=== PATIENT | female | born 1945 | race Caucasian/White ===

== ENCOUNTER 2018-01-14 15:42 | Inpatient (IN) | payer OTHER, MEDICAID ==
[~2018-01-14] VITALS: Ht 167.6 cm; Wt 80.3 kg
[2018-01-14 15:56] VITALS: BP 140/70
[2018-01-14] MEDS ORDERED: LACTULOSE 20 GM/30 ML UDC PO ONE (16:10)
[2018-01-14] MEDS ORDERED: METOCLOPRAMIDE 10 MG TAB PO ONE (16:10)
[2018-01-14] MEDS ORDERED: NACL 0.9% 1,000 ML IV ONE (16:10)
--- NOTE | 2018-01-14 16:26 | NUR ---
PT TAKEN TO CT IN [place]
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
--- NOTE | 2018-01-14 16:52 | NUR ---
PT NOT ABLE TO GIVE URINE AT THIS TIME
[2018-01-14 16:56] LABS: BASOPHILS # (AUTO) 0.1 K/uL (0.00-0.22); EOSINOPHILS # (AUTO) 0.2 K/uL (0-0.4); EOSINOPHILS % (AUTO) 3.6 % (0.0-4.0); HEMATOCRIT 37.6 % (36-48); HEMOGLOBIN 12.6 g/dL (12.0-16.0); LYMPHOCYTES # (AUTO) 2.4 K/uL (2.5-16.5); LYMPHOCYTES % (AUTO) 37.7 % (20.5-51.1); MEAN CORPUSCULAR HEMOGLOBIN 31 pg (27-31); MEAN CORPUSCULAR HGB CONC 34 g/dL (33-37); MEAN CORPUSCULAR VOLUME 91.7 fL (80-94); MONOCYTES # (AUTO) 0.6 K/uL (0.8-1.0); MONOCYTES % (AUTO) 10.3 % (1.7-9.3); NEUTROPHILS % (AUTO) 47.4 % (42.2-75.2); PLATELET COUNT (AUTO) 197 K/uL (140-450); RED CELL DISTRIBUTION WIDTH 13.5 % (11.6-13.7); WHITE BLOOD COUNT (AUTO) 6.3 K/uL (4.8-10.8)
[2018-01-14 17:19] LABS: ALBUMIN 3.6 g/dL (3.4-5.0); AMYLASE 71 U/L (25-115); ANION GAP 10.1 (8-16); ASPARTATE AMINOTRANSFERASE 22 U/L (15-37); CARBON DIOXIDE 28.8 mmol/L (21-32); CHLORIDE 107 mmol/L (98-107); CREATININE 0.8 mg/dL (0.6-1.3); GLUCOSE 96 mg/dL (74-106); LIPASE 106 U/L (73-393); POTASSIUM 3.9 mmol/L (3.5-5.1); SODIUM SERUM 142 mmol/L (136-145); TOTAL BILIRUBIN 0.3 mg/dL (0.0-1.0); UREA NITROGEN, BLOOD 10 mg/dL (7-18)
[2018-01-14 18:08] LABS: APPEARANCE,URINE CLEAR (CLEAR); BILIRUBIN,URINE NEGATIVE (NEGATIVE); BLOOD, URINE NEGATIVE (NEGATIVE); COLOR,URINE YELLOW (YELLOW); LEUKOCYTE ESTERASE ,URINE NEGATIVE (NEGATIVE); NITRITE, URINE NEGATIVE (NEGATIVE); PH,URINE 6.5 (5.0-9.0); UGLUCOSE NEGATIVE (NEGATIVE)
--- NOTE | 2018-01-14 19:10 | NUR ---
PT REPORTS THAT SHE HAS BEEN NPO SINCE 2PM (1400) THIS AFTERNOON. ER NOTIFIED.
[2018-01-14] MEDS ORDERED: PIPERACILLIN/TAZOBACTAM 3.375 GM in DEXTROSE 5% 50 ML IV ONE (19:15)
--- NOTE | 2018-01-14 19:15 | NUR ---
PT LAYING IN BED, DAUGHTER AT BEDSIDE, AWAITNG ROOM PLACEMENT.
--- NOTE | 2018-01-14 19:20 | NUR ---
Patient will be admitted to care of DR. REYES. Admited to MED SURG. Will go to [id number]. Belongings list completed. Report to SHANNAN HERCULES.
[2018-01-14 19:35] VITALS: BP 156/79
--- NOTE | 2018-01-14 19:35 | NUR ---
PT ARRIVED VIA GURNEY FROM ER. RECEIVED REPORT FROM ER NURSE RN. PT AMBULATORY, SPEAKS CITIZEN OF [place] AND [place]. AOX4, CALM AND COOPERATIVE. ON ROOM AIR, IV ON LEFT AC #[id number]-[id number] WELL. PT DAUGHTER ORESTES AT BEDSIDE. DISCUSSED PLAN OF CARE AND PT VERBALIZED UNDERSTANDING. NO S/S OF RESPIRATORY DISTRESS OR DISCOMFORT NOTED AT THIS TIME. VITAL SIGNS TAKEN- BP ELEVATED. MRSA SWAB COLLECTED BY MERCEDES-RN. ORIENTED PT TO BEDROOM, BATHROOM, BED, CALL LIGHT. PT VERBALIZED UNDERSTANDING. BED IN LOWEST POSITION, BED BREAKS ON, AND BOTH SIDE RAILS UP. BED SIDE TABLE AND CALL LIGHT ARE WITHIN REACH. WILL CONTINUE TO MONITOR.
[2018-01-14] MEDS ORDERED: PIPERACILLIN/TAZOBACTAM 3.375 GM VIAL IV ONE (19:48)
--- NOTE | 2018-01-14 20:00 | NUR ---
SCHEDULED MEDICATION ZOSYN ADMINISTERED BY NURSE MERCEDES-SHANNAN. PT TOLERATED WELL.
[2018-01-14] MEDS: DEXT 5% / NACL 0.9% 500 ML IV SCH (22:00)
--- NOTE | 2018-01-14 22:00 | NUR ---
DR. FRYE IN TO SEE PT. DISCUSSED SURGICAL PROCEDURE- PT VERBALIZED UNDERSTANDING. ORDERED TO HAVE CONSENT FORM SIGNED.
--- NOTE | 2018-01-14 22:20 | NUR ---
CONSENT FORM SIGNED FOR SURGICAL PROCEDURE AND POSSIBLE BLOOD TRANSFUSION.
--- NOTE | 2018-01-14 22:35 | NUR ---
OR NURSES ARRIVED TO UNIT AND TOOK PT VIA GURNEY TO OR FOR SURGERY. PT RESTING IN BED, NO S/S OF RESPIRATORY DISTRESS OR DISCOMFORT NOTED AT THIS TIME.
[2018-01-14] MEDS ORDERED: BUPIVACAINE-MPF 0.5% 30 ML VIAL INJ ONE (22:48)
[2018-01-14] MEDS ORDERED: fentaNYL 0.05 MG/ML VIAL ONE (22:50)
[2018-01-14] MEDS ORDERED: LIDOCAINE 2% 100 MG/5 ML SYR IVP ONE (23:32)
[2018-01-14] MEDS ORDERED: PHENYLEPHRINE 10 MG/ML VIAL ONE (23:32)
[2018-01-14] MEDS ORDERED: GLYCOPYRROLATE 0.2 MG/ML VIAL ONE (23:32)
[2018-01-14] MEDS ORDERED: DESFLURANE 240 ML BTL INH ONE (23:32)
[2018-01-14] MEDS ORDERED: ONDANSETRON 4 MG/2 ML VIAL ONE (23:32)
[2018-01-14] MEDS ORDERED: SUCCINYLCHOLINE CHLORIDE 200 MG/10 ML VIAL IVP ONE (23:32)
[2018-01-14] MEDS ORDERED: ROCURONIUM 50 MG/5 ML VIAL IV ONE (23:32)
[2018-01-14] MEDS ORDERED: ePHEDrine 50 MG/ML VIAL ONE (23:32)
[2018-01-14] MEDS ORDERED: DEXAMETHASONE 4 MG/ML VIAL ONE (23:32)
[2018-01-14] MEDS ORDERED: PROPOFOL 200 MG/20 ML VIAL IV ONE (23:32)
[2018-01-15] MEDS ORDERED: ONDANSETRON 4 MG/2 ML VIAL IVP PRN ×2 (00:10→03:15)
[2018-01-15] MEDS ORDERED: HYDROmorphone 1 MG/ML AMP IVP PRN (00:10)
[2018-01-15 01:25] VITALS: BP 167/79
--- NOTE | 2018-01-15 01:25 | NUR ---
PT ARRIVED BACK TO UNIT VIA GURNEY BY OR NURSES. VITAL SIGNS TAKEN AND BP ELEVATION NOTED. OR NURSES ALSO STATED HER BP HAS BEEN ELEVATED. PT C/O PAIN 01/27- WILL MEDICATE. NO S/S OF RESPIRATORY DISTRESS NOTED AT THIS TIME. WILL CONTINUE TO MONITOR.
[2018-01-15] MEDS: HYDROmorphone 1 MG/ML AMP IVP PRN ×2 (01:48→09:22)
--- NOTE | 2018-01-15 01:50 | NUR ---
MEDICATED WITH DILAUDID FOR SEVERE PAIN 01/27. PT ALSO C/O LEG CRAMPING AND ASSISTED PT WITH CHANGING POSITIONS FOR COMFORT. PT TOLERATED PAIN MEDICATION WELL. NO S/S OF RESPIRATORY DISTRESS NOTED. WILL CONTINUE TO MONITOR.
[2018-01-15] MEDS: HYDROcodone/APAP 5/325 MG 1 TAB TAB PO PRN ×2 (03:00→16:20)
--- NOTE | 2018-01-15 03:00 | NUR ---
PT CONTINUES TO C/O PAIN 12/27- MEDICATED WITH NORCO. PT TOLERATED WELL. ASSISTED PT TO USE BEDSIDE COMMODE SINCE PT DID NOT FEEL STRONG ENOUGH TO WALK TO THE BATHROOM. PT BACK IN BED RESTING. NO S/S OF RESPIRATORY DISTRESS. WILL CONTINUE TO MONITOR.
--- NOTE | 2018-01-15 03:16 | NUR ---
PT C/O NAUSEA. CALLED DR. REYES HOWEVER DR. FERNANDEZ, DAVID IS ON-CALL. ORDERED ZOFRAN 4MG IVP Q6H PRN.
[2018-01-15] MEDS: DEXT 5% / NACL 0.9% 500 ML IV SCH (04:40)
--- NOTE | 2018-01-15 05:20 | NUR ---
PT RESTING IN BED. NO S/S OF RESPIRATORY DISTRESS OR DISCOMFORT NOTED AT THIS TIME. WILL CONTINUE TO MONITOR.
[2018-01-15] MEDS ORDERED: PIPERACILLIN/TAZOBACTAM 3.375 GM VIAL IV ONE (05:39)
[2018-01-15] MEDS: PIPER/TAZO 3.375GM/D5W PREMIX 50 ML IV SCH ×2 (05:43→12:07)
--- NOTE | 2018-01-15 06:00 | NUR ---
PT RESTING IN BED AT THIS TIME. NO S/S OF RESPIRATORY DISTRESS OR DISCOMFORT NOTED AT THIS TIME. WILL CONTINUE TO MONITOR.
[2018-01-15 06:56] LABS: BASOPHILS % (AUTO) 0.1 % (0.0-2.0); HEMATOCRIT 37.2 % (36-48); HEMOGLOBIN 12.7 g/dL (12.0-16.0); LYMPHOCYTES # (AUTO) 0.7 K/uL (2.5-16.5); LYMPHOCYTES % (AUTO) 7.2 % (20.5-51.1); MEAN CORPUSCULAR HEMOGLOBIN 32 pg (27-31); MEAN CORPUSCULAR HGB CONC 34 g/dL (33-37); MEAN CORPUSCULAR VOLUME 91.9 fL (80-94); MONOCYTES # (AUTO) 0.1 K/uL (0.8-1.0); MONOCYTES % (AUTO) 1.4 % (1.7-9.3); NEUTROPHILS # (AUTO) 8.6 K/uL (1.8-7.7); NEUTROPHILS % (AUTO) 91.3 % (42.2-75.2); PLATELET COUNT (AUTO) 194 K/uL (140-450); RED BLOOD CELL COUNT(AUTO) 4.05 MIL/uL (4.20-5.40); RED CELL DISTRIBUTION WIDTH 13.3 % (11.6-13.7); WHITE BLOOD COUNT (AUTO) 9.4 K/uL (4.8-10.8)
[2018-01-15 07:16] LABS: ALBUMIN 3.5 g/dL (3.4-5.0); ANION GAP 9.8 (8-16); ASPARTATE AMINOTRANSFERASE 23 U/L (15-37); CARBON DIOXIDE 27.1 mmol/L (21-32); CHLORIDE 106 mmol/L (98-107); CREATININE 0.6 mg/dL (0.6-1.3); GLUCOSE 153 mg/dL (74-106); MAGNESIUM 1.7 mg/dL (1.8-2.4); PHOSPHORUS 2.9 mg/dL (2.5-4.9); POTASSIUM 3.9 mmol/L (3.5-5.1); SODIUM SERUM 139 mmol/L (136-145); TOTAL BILIRUBIN 0.4 mg/dL (0.0-1.0); UREA NITROGEN, BLOOD 8 mg/dL (7-18)
[2018-01-15] MEDS ORDERED: DEXT 5% /NACL 0.9% 1,000 ML IV SCH (07:20)
--- NOTE | 2018-01-15 07:36 | NUR ---
ENDORSED PT CARE TO DAY SHIFT NURSE SHAMA FOR CONTINUITY OF CARE.
--- NOTE | 2018-01-15 07:37 | NUR ---
RECEIVED REPORT FROM METAL SOLDERER NURSE. PATIENT SITTING IN BED COMFORTABLY. NO DISTRESS NOTED. PAIN WITHIN TOLERABLE AT THIS TIME. RESPIRATIONS EVEN, UNLABORED, ON ROOM AIR. AAOX4, CALM, COOPERATIVE, SKIN COLOR APPROPRIATE TO ETHNICITY, WARM TO TOUCH. HAS 3 ABDOMINAL INCISIONS WITH DERMABOND S/P LAP APPENDECTOMY EARLIER THIS MORNING. IV SITE INTACT, PATENT, AND INFUSING IVF PER MD ORDERS. HAS NOT HAD A BM, NOR AMBULATED YET. REVIEWED PLAN OF CARE WITH PATIENT. PATIENT VERBALIZED UNDERSTANDING. SAFETY MEASURES IN PLACE, WILL CONTINUE TO MONITOR.
[2018-01-15 08:00] VITALS: BP 148/74
--- NOTE | 2018-01-15 08:27 | NUR ---
CLARIFIED WITH THE PATIENT REGARDING ADVANCE DIRECTIVES PATIENT STATED HAS NO ADVANCE DIRECTIVES. PATIENT IS A/0X4 DAUGHTER AT THE BED SIDE PROVIDE ALL THE INFORMATION PATIENT AND DAUGHTER STATED NO FOR ADVANCE DIRECTIVES.
--- NOTE | 2018-01-15 09:46 | NUR ---
PATIENT HAS BEEN SCREENED AND CATEGORIZED LOW NUTRITION RISK. PATIENT WILL BE SEEN WITHIN 7 DAYS OF ADMISSION. 01/21/[address]
--- NOTE | 2018-01-15 10:30 | NUR ---
PATIENT LYING DOWN IN BED SLEEPING, AROUSABLE BY VOICE. NO DISTRESS NOTED. PAIN WITHIN TOLERABLE. CONDITION UNCHANGED. WILL CONTINUE TO MONITOR.
[2018-01-15] MEDS ORDERED: MIRABULK PO (11:30)
--- NOTE | 2018-01-15 12:08 | NUR ---
PATIENT SITTING IN BED WITH LUNCH TRAY. NO DISTRESS NOTED. DENIES ANY PAIN AT THIS TIME. SCHEDULED ANTIBIOTIC GIVEN. WILL CONTINUE TO MONITOR.
--- NOTE | 2018-01-15 14:12 | NUR ---
CM NOTE INITIAL REVIEW FAXED TO [facility] [phone] JIMMY GONZALEZ # [phone]
--- NOTE | 2018-01-15 14:15 | NUR ---
PATIENT SITTING IN BED TALKING WITH FAMILY MEMBERS AT BEDSIDE. NO DISTRESS NOTED. PAIN WITHIN TOLERABLE WILL CONTINUE TO MONITOR.
[2018-01-15 16:00] VITALS: BP 154/75
--- NOTE | 2018-01-15 16:21 | NUR ---
PATIENT COMPLAINS OF PAIN, NORCO GIVEN PER MD ORDERS. SAFETY MEASURES IN PLACE, CALL LIGHT WITHIN REACH.
--- NOTE | 2018-01-15 16:40 | NUR ---
AWAKE AND ALERT RESPONSIVE PATIENT BEING DISCHARGED REFUSED INCENTIVE SPIROMETRY THERAPY
--- NOTE | 2018-01-15 18:45 | NUR ---
DISCHARGE INSTRUCTIONS AND DISCHARGE PRESCRIPTIONS GIVEN. PATIENT VERBALIZED UNDERSTANDING. IV LINE DISCONTINUED. PATIENT LEFT WITH ALL HER BELONGINGS AND DISCHARGE PAPERS. PATIENT LEFT IN STABLE CONDITION .
== END 2018-01-15 18:45 | disposition home or self-care (01) | DRG 343 ==
LOC: MED 15:42 → MTU 19:09
PROVIDERS: ADMIT Internal Medicine; ATTEND Internal Medicine
PROC: 0DTJ4ZZ Resection of Appendix, Percutaneous Endoscopic Approach (ICD-10-PCS; principal; 2018-01-15)
DX: K35.80 Unspecified acute appendicitis (principal); K59.09 Other constipation; I10 Essential (primary) hypertension; R42 Dizziness and giddiness
CPT/HCPCS: 36415; 71045; 80053; 81003; 82150; 82374; 83690; 83735; 84100; 85025; 86886; 86900; 86901; 87081; 93005; 99285; C1758; J0330; J1100; J1170; J2001; J2370; J2405; J2543; J2704; J3010; J3490; J7030; J7042; J7060; J8597; Q0092

== ENCOUNTER 2018-03-23 10:52 | Emergency (ER) | payer OTHER, MEDICAID ==
[~2018-03-23] VITALS: Ht 165.1 cm; Wt 76.2 kg
[~2018-03-23 10:52] MED LIST: MIRABULK PO
[2018-03-23 10:55] VITALS: BP 132/73
[2018-03-23] MEDS ORDERED: MORPHINE SULFATE 4 MG/ML SYR ONE (11:38)
[2018-03-23] MEDS: DIPHENOXYLATE /ATROPINE 2.5 MG TAB PO ONE (11:41)
[2018-03-23] MEDS: NACL 0.9% 1,000 ML IV SCH (11:44)
[2018-03-23] MEDS: MORPHINE SULFATE 2 MG/ML SYR IVP ONE (11:45)
[2018-03-23] MEDS: KETOROLAC 30 MG/ML VIAL IVP ONE (11:47)
[2018-03-23 11:52] LABS: BASOPHILS % (AUTO) 0.5 % (0.0-2.0); EOSINOPHILS # (AUTO) 0.1 K/uL (0-0.4); EOSINOPHILS % (AUTO) 1.2 % (0.0-4.0); HEMATOCRIT 40.8 % (36-48); HEMOGLOBIN 13.4 g/dL (12.0-16.0); LYMPHOCYTES # (AUTO) 1.4 K/uL (2.5-16.5); LYMPHOCYTES % (AUTO) 25.8 % (20.5-51.1); MEAN CORPUSCULAR HEMOGLOBIN 31 pg (27-31); MEAN CORPUSCULAR HGB CONC 33 g/dL (33-37); MONOCYTES # (AUTO) 0.5 K/uL (0.8-1.0); MONOCYTES % (AUTO) 8.7 % (1.7-9.3); NEUTROPHILS # (AUTO) 3.6 K/uL (1.8-7.7); NEUTROPHILS % (AUTO) 63.8 % (42.2-75.2); PLATELET COUNT (AUTO) 198 K/uL (140-450); RED BLOOD CELL COUNT(AUTO) 4.39 MIL/uL (4.20-5.40); RED CELL DISTRIBUTION WIDTH 13.6 % (11.6-13.7); WHITE BLOOD COUNT (AUTO) 5.6 K/uL (4.8-10.8)
[2018-03-23] MEDS: LEVOFLOXACIN 500 MG/D5W PREMIX 100 ML IV ONE (11:52)
[2018-03-23 12:05] LABS: ALBUMIN 3.7 g/dL (3.4-5.0); AMYLASE 51 U/L (25-115); ANION GAP 9.8 (8-16); ASPARTATE AMINOTRANSFERASE 23 U/L (15-37); CARBON DIOXIDE 30.7 mmol/L (21-32); CHLORIDE 105 mmol/L (98-107); CREATININE 0.8 mg/dL (0.6-1.3); GLUCOSE 89 mg/dL (74-106); LIPASE 73 U/L (73-393); POTASSIUM 3.5 mmol/L (3.5-5.1); SODIUM SERUM 142 mmol/L (136-145); UREA NITROGEN, BLOOD 11 mg/dL (7-18)
[2018-03-23 12:35] LABS: APPEARANCE,URINE HAZY (CLEAR); COLOR,URINE YELLOW (YELLOW)
[2018-03-23 12:38] LABS: BILIRUBIN,URINE NEGATIVE (NEGATIVE); BLOOD, URINE NEGATIVE (NEGATIVE); UGLUCOSE NEGATIVE (NEGATIVE)
[2018-03-23 12:39] LABS: LEUKOCYTE ESTERASE ,URINE TRACE (NEGATIVE); NITRITE, URINE NEGATIVE (NEGATIVE)
[2018-03-23] MEDS: metroNIDAZOLE 500 MG/NS PREMIX 100 ML IV ONE (12:53)
[2018-03-23] MEDS: NACL 0.9% 1,000 ML IV ONE (13:03)
[2018-03-23 14:05] VITALS: BP 128/76
== END 2018-03-23 14:05 | disposition home or self-care (01) ==
LOC: MED 10:52
DX: K52.9 Noninfective gastroenteritis and colitis, unspecified (principal); Z90.89 Acquired absence of other organs; Z79.899 Other long term (current) drug therapy
CPT/HCPCS: 36415; 74176; 80053; 82150; 83690; 84703; 85025; 96361; 96365; 96367; 96375; 99285; J1885; J1956; J2270; J3490; J7030

== ENCOUNTER 2018-05-29 07:21 | Emergency (ER) | payer OTHER, MEDICAID ==
[~2018-05-29] VITALS: Ht 167.6 cm; Wt 80.3 kg
[2018-05-29 07:26] VITALS: BP 143/90
--- NOTE | 2018-05-29 07:35 | NUR ---
PT AMBULATES TO BED 4
--- NOTE | 2018-05-29 07:36 | NUR ---
PT. ARRIVED TO THE ED W/ C/O DIARRHEA SINCE LAST NIGHT. PT STATES SHE COULDN'T SLEEP AT ALL LAST NIGHT AND HAD A COLONOSCOPY ON SATURDAY. DENIES ANY ABD PAIN. DENIES ANY N/V/. DENIES ANY BLOOD IN FECES. DENIES ANY DIZZYNESS. ABD ROUND AND SOFT AND NON TENDER. ACTIVE X 4 QUADS. PT STATES " I JUST FEEL WEAK". ER MD MADE AWARE. SAFETY PRECAUTIONS IN PLACE. RR EVEN AND UNLABORED. VSS. WILL CONTINUE TO MONITOR.
--- NOTE | 2018-05-29 07:37 | NUR ---
Patient being evaluated by physician at bedside.
[2018-05-29] MEDS ORDERED: NACL 0.9% 1,000 ML IV ONE (07:40)
[2018-05-29 08:03] LABS: BASOPHILS # (AUTO) 0.1 K/uL (0.00-0.22); BASOPHILS % (AUTO) 1.1 % (0.0-2.0); EOSINOPHILS # (AUTO) 0.1 K/uL (0-0.4); EOSINOPHILS % (AUTO) 1.9 % (0.0-4.0); HEMATOCRIT 40.1 % (36-48); HEMOGLOBIN 13.2 g/dL (12.0-16.0); LYMPHOCYTES # (AUTO) 1.8 K/uL (2.5-16.5); MEAN CORPUSCULAR HEMOGLOBIN 31 pg (27-31); MEAN CORPUSCULAR HGB CONC 33 g/dL (33-37); MEAN CORPUSCULAR VOLUME 92.9 fL (80-94); MONOCYTES # (AUTO) 0.6 K/uL (0.8-1.0); MONOCYTES % (AUTO) 8.9 % (1.7-9.3); NEUTROPHILS # (AUTO) 3.8 K/uL (1.8-7.7); NEUTROPHILS % (AUTO) 60.1 % (42.2-75.2); PLATELET COUNT (AUTO) 184 K/uL (140-450); RED BLOOD CELL COUNT(AUTO) 4.32 MIL/uL (4.20-5.40); RED CELL DISTRIBUTION WIDTH 13.2 % (11.6-13.7); WHITE BLOOD COUNT (AUTO) 6.3 K/uL (4.8-10.8)
--- NOTE | 2018-05-29 08:30 | NUR ---
PT. SLEEPING IN BED, SIDE RAILS X 1 UP, RR EVEN AND UNLABORED. HOB ELEVATED. WILL CONTINUE TO MONITOR.
[2018-05-29 08:48] LABS: ANION GAP 11.1 (8-16); ASPARTATE AMINOTRANSFERASE 22 U/L (15-37); CARBON DIOXIDE 28.2 mmol/L (21-32); CHLORIDE 106 mmol/L (98-107); CREATININE 0.8 mg/dL (0.6-1.3); GLUCOSE 96 mg/dL (74-106); POTASSIUM 3.3 mmol/L (3.5-5.1); SODIUM SERUM 142 mmol/L (136-145); TOTAL BILIRUBIN 0.5 mg/dL (0.0-1.0); UREA NITROGEN, BLOOD 12 mg/dL (7-18)
[2018-05-29 08:49] LABS: ALBUMIN 3.8 g/dL (3.4-5.0)
[2018-05-29 09:19] VITALS: BP 141/60
--- NOTE | 2018-05-29 09:19 | NUR ---
Patient discharged with v/s stable. Written and verbal after care instructions given and explained. Patient alert, oriented and verbalized understanding of instructions. Ambulatory with steady gait. All questions addressed prior to discharge. ID band removed. Patient advised to follow up with PMD. Rx of IMMODIUM A-D 2MG given. Patient educated on indication of medication including possible reaction and side effects. Opportunity to ask questions provided and answered.
== END 2018-05-29 09:19 | disposition home or self-care (01) ==
LOC: MED 07:21
DX: R19.7 Diarrhea, unspecified (principal); E87.6 Hypokalemia; Z79.899 Other long term (current) drug therapy
CPT/HCPCS: 36415; 80053; 85025; 96360; 99283; J7030

== ENCOUNTER 2018-07-03 07:41 | Emergency (ER) | payer OTHER, MEDICAID ==
[~2018-07-03] VITALS: Ht 167.6 cm; Wt 77.1 kg
[2018-07-03 07:45] VITALS: BP 144/71
--- NOTE | 2018-07-03 07:51 | NUR ---
PATIENT AMBULATED TO BED 2.
--- NOTE | 2018-07-03 07:56 | NUR ---
BIB SELF WITH C/O SOB, SAT 100% AT THIS TIME, PT STATES SHE FEELS LIKE SHE NEEDS MORE AIR. DENIES N/V/D; SKIN IS PINK/WARM/DRY; AAOX4 WITH EVEN AND STEADY GAIT; LUNGS CLEAR BL; HR EVEN AND REGULAR; PT DENIES ANY FEVER, CP, OR COUGH AT THIS TIME; PATIENT STATES PAIN OF 0/10 AT THIS TIME; VSS; PATIENT POSITIONED FOR COMFORT; HOB ELEVATED; BEDRAILS UP X2; BED DOWN. ER MD MADE AWARE OF PT STATUS.
--- NOTE | 2018-07-03 08:08 | NUR ---
PATIENT HOOKED UP TO BEDSIDE SPO2 MONITOR AND HEART MONITOR. NSR ON MONITOR AT THIS TIME.
--- NOTE | 2018-07-03 08:14 | NUR ---
EKG PERFORMED AT BEDSIDE
[2018-07-03 08:26] LABS: BASOPHILS % (AUTO) 0.4 % (0.0-2.0); EOSINOPHILS # (AUTO) 0.1 K/uL (0-0.4); HEMATOCRIT 40.6 % (36-48); HEMOGLOBIN 13.2 g/dL (12.0-16.0); LYMPHOCYTES # (AUTO) 1.6 K/uL (2.5-16.5); MEAN CORPUSCULAR HEMOGLOBIN 30 pg (27-31); MEAN CORPUSCULAR HGB CONC 33 g/dL (33-37); MEAN CORPUSCULAR VOLUME 93.2 fL (80-94); MONOCYTES # (AUTO) 0.5 K/uL (0.8-1.0); MONOCYTES % (AUTO) 7.3 % (1.7-9.3); NEUTROPHILS # (AUTO) 4.3 K/uL (1.8-7.7); NEUTROPHILS % (AUTO) 66.3 % (42.2-75.2); PLATELET COUNT (AUTO) 203 K/uL (140-450); RED BLOOD CELL COUNT(AUTO) 4.35 MIL/uL (4.20-5.40); RED CELL DISTRIBUTION WIDTH 13.4 % (11.6-13.7); WHITE BLOOD COUNT (AUTO) 6.5 K/uL (4.8-10.8)
[2018-07-03 08:46] LABS: ALBUMIN 3.7 g/dL (3.4-5.0); ANION GAP 12.1 (8-16); ASPARTATE AMINOTRANSFERASE 23 U/L (15-37); CARBON DIOXIDE 28.7 mmol/L (21-32); CHLORIDE 104 mmol/L (98-107); CREATININE 0.8 mg/dL (0.6-1.3); GLUCOSE 99 mg/dL (74-106); POTASSIUM 3.8 mmol/L (3.5-5.1); SODIUM SERUM 141 mmol/L (136-145); TOTAL BILIRUBIN 0.7 mg/dL (0.0-1.0); UREA NITROGEN, BLOOD 11 mg/dL (7-18)
[2018-07-03 09:53] VITALS: BP 145/65
--- NOTE | 2018-07-03 09:54 | NUR ---
Patient discharged with v/s stable. Written and verbal after care instructions given and explained. Patient alert, oriented and verbalized understanding of instructions. Ambulatory with steady gait. All questions addressed prior to discharge. ID band removed. Patient advised to follow up with PMD. Rx of gabapentin given. Patient educated on indication of medication including possible reaction and side effects. Opportunity to ask questions provided and answered.
== END 2018-07-03 09:54 | disposition home or self-care (01) ==
LOC: MED 07:41
DX: R06.02 Shortness of breath (principal); Z79.899 Other long term (current) drug therapy
CPT/HCPCS: 36415; 71045; 80053; 85025; 93005; 99284; Q0092

== ENCOUNTER 2018-07-05 07:38 | Emergency (ER) | payer OTHER, MEDICAID ==
[~2018-07-05] VITALS: Ht 157.5 cm; Wt 77.6 kg
[2018-07-05 07:40] VITALS: BP 122/73
--- NOTE | 2018-07-05 07:46 | NUR ---
PT AMBULATES TO BED 4
--- NOTE | 2018-07-05 07:49 | NUR ---
72/F BIB SELF C/O PALPITATIONS SINCE LAST NIGHT AND >10 EPISODES OF LOOSE STOOLS EXPRESSES FEELING ANXIOUS WELL.DENIES N/V ,COUGH OR COLD SYMPTOMS SEEN IN OUR ER JUL 03 PALPITATIONS AND IN MAY FOR SAME DIARRHEA PER PT HX--DENIES RX--IMODIUM ( 3PM) YESTERDAY. SKIN IS PINK/WARM/DRY; AAOX4 WITH EVEN AND STEADY GAIT. PATIENT STATES PAIN OF 0/10 AT THIS TIME PATIENT POSITIONED FOR COMFORT; HOB ELEVATED; BEDRAILS UP X2; BED DOWN. ER MD MADE AWARE OF PT STATUS. Addendum: 07/05/18 at 0840 by MED1 PT REFUSED TO PUT ON GAWN AT THIS TIME.
--- NOTE | 2018-07-05 08:06 | NUR ---
Patient being evaluated by DR REHMAN at bedside.
[2018-07-05] MEDS ORDERED: NACL 0.9% 500 ML IV ONE (08:35)
--- NOTE | 2018-07-05 08:42 | NUR ---
DIARRHEA 1 EPISODE AT THIS TIME.
--- NOTE | 2018-07-05 08:46 | NUR ---
PT TAKEN TO X RAY VIA W/C, ACCOMPANIED BY AIR SHOVEL OPERATOR.
[2018-07-05 09:10] LABS: BASOPHILS # (AUTO) 0.1 K/uL (0.00-0.22); BASOPHILS % (AUTO) 0.7 % (0.0-2.0); EOSINOPHILS # (AUTO) 0.1 K/uL (0-0.4); HEMOGLOBIN 13.4 g/dL (12.0-16.0); LYMPHOCYTES # (AUTO) 2.2 K/uL (2.5-16.5); LYMPHOCYTES % (AUTO) 29.1 % (20.5-51.1); MEAN CORPUSCULAR HEMOGLOBIN 30 pg (27-31); MEAN CORPUSCULAR HGB CONC 33 g/dL (33-37); MEAN CORPUSCULAR VOLUME 92.8 fL (80-94); MONOCYTES # (AUTO) 0.5 K/uL (0.8-1.0); MONOCYTES % (AUTO) 6.9 % (1.7-9.3); NEUTROPHILS # (AUTO) 4.6 K/uL (1.8-7.7); NEUTROPHILS % (AUTO) 62.3 % (42.2-75.2); PLATELET COUNT (AUTO) 201 K/uL (140-450); RED BLOOD CELL COUNT(AUTO) 4.41 MIL/uL (4.20-5.40); RED CELL DISTRIBUTION WIDTH 13.6 % (11.6-13.7); WHITE BLOOD COUNT (AUTO) 7.4 K/uL (4.8-10.8)
[2018-07-05 09:36] LABS: ANION GAP 12.2 (8-16); CARBON DIOXIDE 29.8 mmol/L (21-32); CHLORIDE 104 mmol/L (98-107); GLUCOSE 96 mg/dL (74-106); SODIUM SERUM 142 mmol/L (136-145)
[2018-07-05 09:37] LABS: CREATININE 0.7 mg/dL (0.6-1.3); UREA NITROGEN, BLOOD 12 mg/dL (7-18)
[2018-07-05 09:45] LABS: ALBUMIN 3.9 g/dL (3.4-5.0); ASPARTATE AMINOTRANSFERASE 24 U/L (15-37); TOTAL BILIRUBIN 0.4 mg/dL (0.0-1.0)
[2018-07-05 10:44] VITALS: BP 122/50
--- NOTE | 2018-07-05 10:44 | NUR ---
Patient discharged with v/s stable. Written and verbal after care instructions given and explained. Patient alert, oriented and verbalized understanding of instructions. Ambulatory with steady gait. All questions addressed prior to discharge. ID band removed. Patient advised to follow up with PMD. Rx of LOMOTIL given. Patient educated on indication of medication including possible reaction and side effects. Opportunity to ask questions provided and answered.
== END 2018-07-05 10:44 | disposition home or self-care (01) ==
LOC: MED 07:38
DX: R19.7 Diarrhea, unspecified (principal); Z90.49 Acquired absence of other specified parts of digestive tract; Z79.899 Other long term (current) drug therapy
CPT/HCPCS: 36415; 74022; 80053; 81002; 85025; 96360; 99284; J7030

== ENCOUNTER 2018-07-26 13:37 | Emergency (ER) | payer OTHER, MEDICAID ==
[~2018-07-26] VITALS: Ht 167.6 cm; Wt 77.1 kg
[2018-07-26 13:40] VITALS: BP 126/72
--- NOTE | 2018-07-26 13:41 | NUR ---
PATIENT AMBULATED TO BED 7 AT THIS TIME.
--- NOTE | 2018-07-26 13:57 | NUR ---
PATIENT PRESENTS TO ED WITH THE C/O ANXIETY AND ABDOMINAL PAIN. PT SAYS SHE IS HAVING ANXIETY FOR COUPLE OF MENTHA. NOT TAKING ANY MEDICINE FOR ANXIETY. PT ALSO STATED THAT SHE IS HAVING ABDOMINAL PAIN FOR 5 DAYS. TOOK IBUPROFEN 5 HOURS AGO. LAST BM WAS 5 DAYS AGO. ABDOMEN SOFT ROUND AND NON-TENDER. ACTIVE BOWEL SOUND. DENIES N/V/D. SKIN IS PINK/WARM/DRY. AAOX4 WITH EVEN AND STEADY GAIT. PT DENIES ANY FEVER, CP, SOB, OR COUGH AT THIS TIME; PATIENT STATES PAIN OF 8/10 AT THIS TIME. VSS. PATIENT POSITIONED FOR COMFORT; HOB ELEVATED; BEDRAILS UP X2; BED DOWN. ER MD MADE AWARE OF PT STATUS.
--- NOTE | 2018-07-26 14:02 | NUR ---
SEEN BY DR. YOST.
[2018-07-26] MEDS ORDERED: GABAPENTIN 300 MG CAP PO ONE (14:05)
[2018-07-26 14:25] VITALS: BP 145/79
--- NOTE | 2018-07-26 14:25 | NUR ---
Patient discharged with v/s stable. Written and verbal after care instructions given and explained. Patient alert, oriented and verbalized understanding of instructions. Ambulatory with steady gait. All questions addressed prior to discharge. ID band removed. Patient advised to follow up with PMD. Rx of GABAPENTIN given. Patient educated on indication of medication including possible reaction and side effects. Opportunity to ask questions provided and answered.
== END 2018-07-26 14:25 | disposition home or self-care (01) ==
LOC: MED 13:37
DX: F41.9 Anxiety disorder, unspecified (principal); Z79.899 Other long term (current) drug therapy
CPT/HCPCS: 99283

== ENCOUNTER 2018-08-10 14:50 | Emergency (ER) | payer OTHER, MEDICAID ==
[~2018-08-10] VITALS: Ht 172.7 cm; Wt 79.4 kg
--- NOTE | 2018-08-10 15:02 | NUR ---
PT AMB TO ER BED 9
[2018-08-10 15:05] VITALS: BP 95/49
--- NOTE | 2018-08-10 15:10 | NUR ---
72/F PT C/O 12/27 GENERALIZED ABDOMINAL PAIN AND DIARRHEA SINCE YESTERDAY MORNING. LBM TODAY. DENIES N/V. PLACED IN BED, WAITING FOR ER MD FOR EVALUATION.
--- NOTE | 2018-08-10 15:34 | NUR ---
Patient being evaluated by DR LEWIS at bedside.
[2018-08-10] MEDS ORDERED: NACL 0.9% 1,000 ML IV ONE (15:45)
[2018-08-10] MEDS ORDERED: LEVOFLOXACIN 500 MG/D5W PREMIX 100 ML IV ONE (15:45)
--- NOTE | 2018-08-10 15:52 | NUR ---
PT SENT TO CT WITH TECH VIA BED AAOX4
--- NOTE | 2018-08-10 16:04 | NUR ---
PT BACK FROM XRAY
[2018-08-10 16:47] LABS: APPEARANCE,URINE CLEAR (CLEAR); BILIRUBIN,URINE NEGATIVE (NEGATIVE); BLOOD, URINE NEGATIVE (NEGATIVE); COLOR,URINE YELLOW (YELLOW); LEUKOCYTE ESTERASE ,URINE NEGATIVE (NEGATIVE); NITRITE, URINE NEGATIVE (NEGATIVE); PH,URINE 6.5 (5.0-9.0); UGLUCOSE NEGATIVE (NEGATIVE)
[2018-08-10 16:49] LABS: BASOPHILS # (AUTO) 0.1 K/uL (0.00-0.22); BASOPHILS % (AUTO) 1.7 % (0.0-2.0); EOSINOPHILS # (AUTO) 0.2 K/uL (0-0.4); EOSINOPHILS % (AUTO) 2.4 % (0.0-4.0); HEMATOCRIT 39.6 % (36-48); HEMOGLOBIN 13.1 g/dL (12.0-16.0); LYMPHOCYTES # (AUTO) 1.6 K/uL (2.5-16.5); LYMPHOCYTES % (AUTO) 22.7 % (20.5-51.1); MEAN CORPUSCULAR HEMOGLOBIN 31 pg (27-31); MEAN CORPUSCULAR HGB CONC 33 g/dL (33-37); MONOCYTES # (AUTO) 0.6 K/uL (0.8-1.0); MONOCYTES % (AUTO) 8.7 % (1.7-9.3); NEUTROPHILS # (AUTO) 4.4 K/uL (1.8-7.7); NEUTROPHILS % (AUTO) 64.5 % (42.2-75.2); PLATELET COUNT (AUTO) 186 K/uL (140-450); RED BLOOD CELL COUNT(AUTO) 4.21 MIL/uL (4.20-5.40); RED CELL DISTRIBUTION WIDTH 13.7 % (11.6-13.7); WHITE BLOOD COUNT (AUTO) 6.9 K/uL (4.8-10.8)
[2018-08-10 17:01] LABS: ALBUMIN 3.4 g/dL (3.4-5.0); ANION GAP 13.4 (8-16); ASPARTATE AMINOTRANSFERASE 21 U/L (15-37); CARBON DIOXIDE 27.4 mmol/L (21-32); CHLORIDE 106 mmol/L (98-107); CREATININE 0.9 mg/dL (0.6-1.3); GLUCOSE 77 mg/dL (74-106); POTASSIUM 3.8 mmol/L (3.5-5.1); SODIUM SERUM 143 mmol/L (136-145); TOTAL BILIRUBIN 0.4 mg/dL (0.0-1.0); UREA NITROGEN, BLOOD 15 mg/dL (7-18)
[2018-08-10 18:28] VITALS: BP 119/61
== END 2018-08-10 18:28 | disposition home or self-care (01) ==
LOC: MED 14:50
DX: K52.9 Noninfective gastroenteritis and colitis, unspecified (principal); K59.00 Constipation, unspecified; Z90.89 Acquired absence of other organs; Z79.899 Other long term (current) drug therapy
CPT/HCPCS: 36415; 74176; 80053; 81003; 85025; 96365; 99284; J1956; J7030

== ENCOUNTER 2018-09-03 15:38 | Emergency (ER) | payer OTHER, MEDICAID ==
[~2018-09-03] VITALS: Ht 170.2 cm; Wt 78.1 kg
[2018-09-03 15:50] VITALS: BP 155/78
--- NOTE | 2018-09-03 15:56 | NUR ---
PT AMBULATED TO LOBBY AT THIS TIME. VSS
--- NOTE | 2018-09-03 16:06 | NUR ---
PT TAKEN TO RADIAOLOGY AT THIS TIME
--- NOTE | 2018-09-03 16:24 | NUR ---
PT GETTING LABS DRAWN AT CHAIR C AT THIS TIME
[2018-09-03 16:35] LABS: BASOPHILS % (AUTO) 0.7 % (0.0-2.0); EOSINOPHILS # (AUTO) 0.2 K/uL (0-0.4); EOSINOPHILS % (AUTO) 2.9 % (0.0-4.0); HEMATOCRIT 40.4 % (36-48); HEMOGLOBIN 13.4 g/dL (12.0-16.0); LYMPHOCYTES # (AUTO) 1.6 K/uL (2.5-16.5); LYMPHOCYTES % (AUTO) 30.9 % (20.5-51.1); MEAN CORPUSCULAR HEMOGLOBIN 31 pg (27-31); MEAN CORPUSCULAR HGB CONC 33 g/dL (33-37); MEAN CORPUSCULAR VOLUME 92.2 fL (80-94); MONOCYTES # (AUTO) 0.5 K/uL (0.8-1.0); MONOCYTES % (AUTO) 9.3 % (1.7-9.3); NEUTROPHILS % (AUTO) 56.2 % (42.2-75.2); PLATELET COUNT (AUTO) 218 K/uL (140-450); RED BLOOD CELL COUNT(AUTO) 4.38 MIL/uL (4.20-5.40); RED CELL DISTRIBUTION WIDTH 13.6 % (11.6-13.7); WHITE BLOOD COUNT (AUTO) 5.3 K/uL (4.8-10.8)
--- NOTE | 2018-09-03 16:49 | NUR ---
72 Y FEMALE C/O ABD PAIN ACROSS ENTIRE ABD X2 DAYS. INTERMITENT CRAMPING PAIN AT 9/10. PT REPORTS LAST BM WAS 1 WEEK AGO. PT TOOK LAXATIVE LAST NIGHT WITH NO RELIEF. BOWEL SOUNDS HYPOACTIVE IN ALL 4 QUADRANTS. ABDOMEN SOFT AND ROUND. DENIES N/V. VSS AT THIS TIME. AA0X4. BED IS DOWN, LOCKED, BED RAIL X 1, ERMD NOTIFIED. MEDHX:ANXIETY RX:GABAPENTIN
--- NOTE | 2018-09-03 16:57 | NUR ---
PT SITTING COMFORTABLY IN BED
[2018-09-03 17:01] LABS: APPEARANCE,URINE CLEAR (CLEAR); BILIRUBIN,URINE NEGATIVE (NEGATIVE); BLOOD, URINE NEGATIVE (NEGATIVE); COLOR,URINE YELLOW (YELLOW); LEUKOCYTE ESTERASE ,URINE NEGATIVE (NEGATIVE); NITRITE, URINE NEGATIVE (NEGATIVE); PH,URINE 7.5 (5.0-9.0); UGLUCOSE NEGATIVE (NEGATIVE)
[2018-09-03 17:06] LABS: ALBUMIN 3.7 g/dL (3.4-5.0); ANION GAP 10.4 (8-16); ASPARTATE AMINOTRANSFERASE 28 U/L (15-37); CARBON DIOXIDE 28.1 mmol/L (21-32); CHLORIDE 104 mmol/L (98-107); CREATININE 0.8 mg/dL (0.6-1.3); GLUCOSE 89 mg/dL (74-106); LIPASE 78 U/L (73-393); POTASSIUM 4.5 mmol/L (3.5-5.1); SODIUM SERUM 138 mmol/L (136-145); TOTAL BILIRUBIN 0.5 mg/dL (0.0-1.0); UREA NITROGEN, BLOOD 10 mg/dL (7-18)
--- NOTE | 2018-09-03 17:06 | NUR ---
DR MARTINEZ AT BEDSIDE
[2018-09-03 17:22] VITALS: BP 151/76
--- NOTE | 2018-09-03 17:22 | NUR ---
Patient discharged with v/s stable. Written and verbal after care instructions given and explained. Patient alert, oriented and verbalized understanding of instructions. Ambulatory with steady gait. All questions addressed prior to discharge. ID band removed. Patient advised to follow up with PMD. Rx of MIRALAX, MOTRIN given. Patient educated on indication of medication including possible reaction and side effects. Opportunity to ask questions provided and answered.
== END 2018-09-03 17:22 | disposition home or self-care (01) ==
LOC: MED 15:38
DX: K59.00 Constipation, unspecified (principal); Z79.899 Other long term (current) drug therapy; Z90.89 Acquired absence of other organs
CPT/HCPCS: 36415; 80053; 81003; 83690; 85025; 99284

== ENCOUNTER 2018-11-10 12:22 | Emergency (ER) | payer OTHER, MEDICAID ==
[~2018-11-10] VITALS: Ht 170.2 cm; Wt 83.5 kg
[2018-11-10 12:42] VITALS: BP 129/55
--- NOTE | 2018-11-10 12:50 | NUR ---
73 Y FEMALE BIB SELF C/O RLQ AND LLQ ABD PAIN X1 DAY. PT REPORTS SHARP 10/10 PAIN WHEN SHE STANDS UP OR WALKS AROUND, PT REPORTS NO PAIN WHEN SHE SITS DOWN. PT TX WTIH 800MG IBUPROFEN AT 07:00 AND 11:00 THIS MORNING. STATES SOME RELIEF. LAST BM YESTERDAY, NORMAL. BOWEL SOUNDS ACTIVE IN ALL 4 QUADRANTS. ABDOMEN SOFT AND ROUND, TENDER TO TOUCH. DENIES N/V. VSS AT THIS TIME. PT AA0X4. BED IS DOWN, LOCKED, BED RAIL X 1, ERMD TO SEE PT. MDHX:ANXIETY RX:GABAPTENTIN
--- NOTE | 2018-11-10 13:55 | NUR ---
PT GOING TO CT VIA WHEELCHAIR
[2018-11-10] MEDS: KETOROLAC 30 MG/ML VIAL IM ONE ×2 (14:04→14:07)
--- NOTE | 2018-11-10 14:04 | NUR ---
PT RETURNED FROM CT
--- NOTE | 2018-11-10 14:10 | NUR ---
PT REFUSING TORADOL, STATES IT IS TOO STRONG. PREFERS MOTRIN. DR FINLEY NOTIFIED.
[2018-11-10] MEDS ORDERED: IBUPROFEN 600 MG TAB PO ONE (14:25)
--- NOTE | 2018-11-10 14:54 | NUR ---
DR FINLEY RE-EVALUATING PT
--- NOTE | 2018-11-10 14:58 | NUR ---
PT AMB TO RESTROOM WITH STEADY GAIT
[2018-11-10 15:00] VITALS: BP 163/82
--- NOTE | 2018-11-10 15:00 | NUR ---
Patient discharged with v/s stable. Written and verbal after care instructions given and explained. Patient alert, oriented and verbalized understanding of instructions. Carried with steady gait. All questions addressed prior to discharge. ID band removed. Patient advised to follow up with PMD. Rx of COLACE, ACETOMINOPHEN given. Patient educated on indication of medication including possible reaction and side effects. Opportunity to ask questions provided and answered. PT PROVIDED COPY OF CT RESULTS.
== END 2018-11-10 15:00 | disposition home or self-care (01) ==
LOC: MED 12:22
DX: R10.32 Left lower quadrant pain (principal); R10.31 Right lower quadrant pain; F41.9 Anxiety disorder, unspecified; Z90.49 Acquired absence of other specified parts of digestive tract; Z79.899 Other long term (current) drug therapy
CPT/HCPCS: 81002; 99284; J1885

== ENCOUNTER 2018-12-19 13:13 | Emergency (ER) | payer OTHER, MEDICAID ==
[~2018-12-19] VITALS: Ht 170.2 cm; Wt 83.0 kg
[2018-12-19 13:19] VITALS: BP 115/74
--- NOTE | 2018-12-19 13:40 | NUR ---
73/F presents to ED with complaints of lower abdominal pain for the past 6 months. States she has been seen here a few times and they tell her nothing is wrong. Pt states she continues to have pain, 1010 worsening today. LBM two days ago. Abdomen soft, non tender with palpation, active bowel sounds x 4 quadrants. Patient denies s/sx of UTI. Denies N/V/D. Denies fever or chills. Pt states she has followed up GI and states "they tell me nothing." AOX4, clear speech, observed drinking water. NAD at this time.
--- NOTE | 2018-12-19 14:12 | NUR ---
US AT BEDSIDE. GAVE WATER, INFORMED HER NEED URINE FOR UA. PT TO TRY AGAIN IN A WHILE.
[2018-12-19 14:19] LABS: BASOPHILS % (AUTO) 0.7 % (0.0-2.0); EOSINOPHILS # (AUTO) 0.2 K/uL (0-0.4); EOSINOPHILS % (AUTO) 2.6 % (0.0-4.0); HEMATOCRIT 35.8 % (36-48); HEMOGLOBIN 11.9 g/dL (12.0-16.0); LYMPHOCYTES % (AUTO) 32.6 % (20.5-51.1); MEAN CORPUSCULAR HEMOGLOBIN 31 pg (27-31); MEAN CORPUSCULAR HGB CONC 33 g/dL (33-37); MEAN CORPUSCULAR VOLUME 92.2 fL (80-94); MONOCYTES # (AUTO) 0.6 K/uL (0.8-1.0); MONOCYTES % (AUTO) 9.2 % (1.7-9.3); NEUTROPHILS # (AUTO) 3.3 K/uL (1.8-7.7); NEUTROPHILS % (AUTO) 54.9 % (42.2-75.2); PLATELET COUNT (AUTO) 177 K/uL (140-450); RED BLOOD CELL COUNT(AUTO) 3.88 MIL/uL (4.20-5.40); RED CELL DISTRIBUTION WIDTH 13.5 % (11.6-13.7); WHITE BLOOD COUNT (AUTO) 6.1 K/uL (4.8-10.8)
[2018-12-19 14:34] LABS: ALBUMIN 3.5 g/dL (3.4-5.0); ANION GAP 10.2 (8-16); ASPARTATE AMINOTRANSFERASE 23 U/L (15-37); CARBON DIOXIDE 26.3 mmol/L (21-32); CHLORIDE 107 mmol/L (98-107); CREATININE 0.9 mg/dL (0.6-1.3); GLUCOSE 90 mg/dL (74-106); LIPASE 80 U/L (73-393); POTASSIUM 3.5 mmol/L (3.5-5.1); SODIUM SERUM 140 mmol/L (136-145); TOTAL BILIRUBIN 0.5 mg/dL (0.0-1.0); UREA NITROGEN, BLOOD 13 mg/dL (7-18)
--- NOTE | 2018-12-19 14:42 | NUR ---
URINE SAMPLE COLLECTED. X-RAY AT THE BEDSIDE.
--- NOTE | 2018-12-19 15:15 | NUR ---
CHECKED ON PT, SITTING ON CHAIR. STATES FINE SITTING ON CHAIR. PT SATBLE . NO DISTRESS NOTED.
[2018-12-19 15:48] LABS: APPEARANCE,URINE CLEAR (CLEAR); BILIRUBIN,URINE NEGATIVE (NEGATIVE); BLOOD, URINE NEGATIVE (NEGATIVE); COLOR,URINE YELLOW (YELLOW); LEUKOCYTE ESTERASE ,URINE NEGATIVE (NEGATIVE); NITRITE, URINE NEGATIVE (NEGATIVE); UGLUCOSE NEGATIVE (NEGATIVE)
[2018-12-19 16:00] VITALS: BP 162/77
--- NOTE | 2018-12-19 16:01 | NUR ---
Patient discharged with v/s stable. Written and verbal after care instructions given and explained. Patient alert, oriented and verbalized understanding of instructions. Ambulatory with steady gait. All questions addressed prior to discharge. ID band removed. Patient advised to follow up with PMD. Rx of LACTULOSE given. Patient educated on indication of medication including possible reaction and side effects. Opportunity to ask questions provided and answered.
== END 2018-12-19 16:01 | disposition home or self-care (01) ==
LOC: MED 13:13
DX: K59.00 Constipation, unspecified (principal); Z90.49 Acquired absence of other specified parts of digestive tract; Z79.899 Other long term (current) drug therapy
CPT/HCPCS: 36415; 74018; 76830; 80053; 81003; 83690; 85025; 99284; Q0092

== ENCOUNTER 2019-03-09 09:50 | Emergency (ER) | payer OTHER, MEDICAID ==
[~2019-03-09] VITALS: Ht 162.6 cm; Wt 68.0 kg
[2019-03-09 09:58] VITALS: BP 134/68
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
--- NOTE | 2019-03-09 10:09 | NUR ---
DR. KAUR AT BEDSIDE EVALUATING PT
[2019-03-09] MEDS ORDERED: DICYCLOMINE HCL LIQUID 20 MG, ALUMINUM HYD/MAG/SIMETHICONE 30 ML, LIDOCAINE VISCOUS 2% ... PO ONE ×3 (10:10)
[2019-03-09] MEDS ORDERED: ASPIRIN 81 MG TAB.CHEW PO ONE (10:10)
--- NOTE | 2019-03-09 10:20 | NUR ---
PT AMBULATED TO RESTROOM TO PROVIDE URINE SAMPLE
--- NOTE | 2019-03-09 10:24 | NUR ---
LAB AT BEDSIDE
--- NOTE | 2019-03-09 10:26 | NUR ---
PATIENT TAKEN FOR CXR VIA WHEELCHAIR.
[2019-03-09 10:35] LABS: APPEARANCE,URINE CLEAR (CLEAR); BILIRUBIN,URINE NEGATIVE (NEGATIVE); BLOOD, URINE NEGATIVE (NEGATIVE); COLOR,URINE YELLOW (YELLOW); LEUKOCYTE ESTERASE ,URINE 1+ (NEGATIVE); NITRITE, URINE NEGATIVE (NEGATIVE); PH,URINE 6.5 (5.0-9.0); UGLUCOSE NEGATIVE (NEGATIVE)
[2019-03-09 10:35] LABS: BASOPHILS # (AUTO) 0.1 K/uL (0.00-0.22); BASOPHILS % (AUTO) 0.9 % (0.0-2.0); EOSINOPHILS # (AUTO) 0.2 K/uL (0-0.4); EOSINOPHILS % (AUTO) 2.8 % (0.0-4.0); HEMATOCRIT 37.4 % (36-48); HEMOGLOBIN 12.5 g/dL (12.0-16.0); LYMPHOCYTES # (AUTO) 1.9 K/uL (2.5-16.5); LYMPHOCYTES % (AUTO) 33.4 % (20.5-51.1); MEAN CORPUSCULAR HEMOGLOBIN 32 pg (27-31); MEAN CORPUSCULAR HGB CONC 33 g/dL (33-37); MEAN CORPUSCULAR VOLUME 94.8 fL (80-94); MONOCYTES # (AUTO) 0.4 K/uL (0.8-1.0); MONOCYTES % (AUTO) 7.9 % (1.7-9.3); NEUTROPHILS # (AUTO) 3.1 K/uL (1.8-7.7); PLATELET COUNT (AUTO) 198 K/uL (140-450); RED BLOOD CELL COUNT(AUTO) 3.95 MIL/uL (4.20-5.40); RED CELL DISTRIBUTION WIDTH 13.5 % (11.6-13.7); WHITE BLOOD COUNT (AUTO) 5.7 K/uL (4.8-10.8)
--- NOTE | 2019-03-09 10:47 | NUR ---
PT STATES PAIN RELIEF, PAIN DECREASED TO PAIN LEVEL 4/10.
[2019-03-09 10:49] LABS: RBC,URINE 0 /HPF (0-5)
[2019-03-09 10:53] LABS: ALBUMIN 3.7 g/dL (3.4-5.0); ANION GAP 11.9 (8-16); ASPARTATE AMINOTRANSFERASE 25 U/L (15-37); CARBON DIOXIDE 26.4 mmol/L (21-32); CHLORIDE 108 mmol/L (98-107); CREATININE 0.7 mg/dL (0.6-1.3); GLUCOSE 90 mg/dL (74-106); POTASSIUM 3.3 mmol/L (3.5-5.1); SODIUM SERUM 143 mmol/L (136-145); TOTAL BILIRUBIN 0.4 mg/dL (0.0-1.0); UREA NITROGEN, BLOOD 10 mg/dL (7-18)
--- NOTE | 2019-03-09 11:16 | NUR ---
DR. KAUR AT PT BEDSIDE
[2019-03-09 11:25] VITALS: BP 144/87
--- NOTE | 2019-03-09 11:25 | NUR ---
Patient discharged with v/s stable. Written and verbal after care instructions given and explained. Pt encouraged to avoid coffee, caffeine, spicy foods, and acidic foods. Patient alert, oriented and verbalized understanding of instructions. Ambulatory with steady gait. All questions addressed prior to discharge. ID band removed. Patient advised to follow up with PMD. Rx of PRILOSEC was given. Patient educated on indication of medication including possible reaction and side effects. Opportunity to ask questions provided and answered.
--- NOTE | 2019-03-11 16:50 | NUR ---
ATTEMPT MADE TO CONTACT PATIENT WITH POSTIVE URINE CULTURE RESULTS. NO ANSWER. WILL CONTINUE TO MAKE CONTACT WITH PATIENT.
--- NOTE | 2019-03-12 06:28 | NUR ---
CALLED MADE REGARDING FOLLOW UP CARE. NO ANSWER. WAYNE LEFT.
== END 2019-03-09 11:25 | disposition home or self-care (01) ==
LOC: MED 09:50
DX: K29.70 Gastritis, unspecified, without bleeding (principal); E87.6 Hypokalemia; I10 Essential (primary) hypertension; K21.9 Gastro-esophageal reflux disease without esophagitis; Z90.49 Acquired absence of other specified parts of digestive tract; Z79.899 Other long term (current) drug therapy
CPT/HCPCS: 36415; 71046; 80053; 81001; 84484; 85025; 87086; 87186; 93005; 99284

== ENCOUNTER 2019-03-28 10:43 | Emergency (ER) | payer OTHER, MEDICAID ==
[~2019-03-28] VITALS: Ht 170.2 cm; Wt 80.7 kg
[2019-03-28 10:46] VITALS: BP 115/67
--- NOTE | 2019-03-28 10:58 | NUR ---
PT AMBULATED TO ER BED 04
--- NOTE | 2019-03-28 11:02 | NUR ---
Patient being evaluated by Dr. Hagen at bedside.
--- NOTE | 2019-03-28 11:09 | NUR ---
PATIENT PRESENTS TO ED WITH 10/10 ABDOMINAL PAIN X 1 YEAR. PT STATES THAT THE PAIN COMES AND GOES AND IS AGGRAVATED BY MOVEMENT. +CONSTIPATION. LBM: 2 DAYS AGO. -N/V/D, -URINARY SYMPTOMS. PT TOOK TYLENOL AND IBUPROFEN WHICH PROVIDES NO RELIEF. VSS; PATIENT POSITIONED FOR COMFORT; HOB ELEVATED; BEDRAILS UP X2; BED DOWN. ER MD SAW PATIENT. PMH: S/P APPENDECTOMY 2017 NO ALLERGIES.
[2019-03-28] MEDS ORDERED: KETOROLAC 60 MG/2 ML VIAL IM ONE (11:10)
[2019-03-28 11:34] VITALS: BP 115/67
--- NOTE | 2019-03-28 11:34 | NUR ---
Patient discharged with v/s stable. Written and verbal after care instructions given and explained. Patient alert, oriented and verbalized understanding of instructions. Ambulatory with steady gait. All questions addressed prior to discharge. ID band removed. Patient advised to follow up with PMD. Rx of MAGNESIUM CITRATE given. Patient educated on indication of medication including possible reaction and side effects. Opportunity to ask questions provided and answered. PT TOOK HER HOME MEDS WITH HER.
== END 2019-03-28 11:34 | disposition home or self-care (01) ==
LOC: MED 10:43
DX: R10.13 Epigastric pain (principal); K21.9 Gastro-esophageal reflux disease without esophagitis; Z90.49 Acquired absence of other specified parts of digestive tract; Z79.899 Other long term (current) drug therapy
CPT/HCPCS: 81002; 96372; 99283; J1885

== ENCOUNTER 2019-04-11 13:49 | Emergency (ER) | payer OTHER, MEDICAID ==
[~2019-04-11] VITALS: Ht 170.2 cm; Wt 84.8 kg
[2019-04-11 13:55] VITALS: BP 96/35
--- NOTE | 2019-04-11 14:04 | NUR ---
PATIENT AMBULATED TO BED 6
--- NOTE | 2019-04-11 14:05 | NUR ---
PT C/O INTERMITTENT SHARP LOWER ABDOMINAL PAIN FOR ONE YEAR. DID COLONOSCOPY SHOWED NORMAL FINDINGS. PT DENIES HAVING NAUSEA, VOMITING, ALTERNATIVER DIARRHEA AND CONSTIPATION, OR HEMATOCHEZIA. PT REPORTS HAVIBG OCCASIONAL CONSTIPATION. PATIENT STATES PAIN OF 10/10 AT THIS TIME; VSS; PATIENT POSITIONED FOR COMFORT; HOB ELEVATED; BEDRAILS UP X1; BED DOWN. ER MD MADE AWARE OF PT STATUS.
--- NOTE | 2019-04-11 14:08 | NUR ---
Dr. Sow is evaluating the patient at bedside.
--- NOTE | 2019-04-11 14:45 | NUR ---
pt is not able to urinate at this time.
[2019-04-11] MEDS ORDERED: KETOROLAC 60 MG/2 ML VIAL IM ONE (15:00)
[2019-04-11 15:10] VITALS: BP 124/72
--- NOTE | 2019-04-11 15:10 | NUR ---
Patient discharged with v/s stable. Written and verbal after care instructions given and explained. Patient alert, oriented and verbalized understanding of instructions. Ambulatory with steady gait. All questions addressed prior to discharge. ID band removed. Patient advised to follow up with PMD. Rx of Mineral Oil, Tramadol, and MiraLax Powder given. Patient educated on indication of medication including possible reaction and side effects. Opportunity to ask questions provided and answered.
== END 2019-04-11 15:10 | disposition home or self-care (01) ==
LOC: MED 13:49
DX: K59.00 Constipation, unspecified (principal); K21.9 Gastro-esophageal reflux disease without esophagitis; Z90.49 Acquired absence of other specified parts of digestive tract; Z79.899 Other long term (current) drug therapy
CPT/HCPCS: 74018; 96372; 99283; J1885; Q0092

== ENCOUNTER 2019-05-09 14:52 | Emergency (ER) | payer OTHER, MEDICAID ==
[~2019-05-09] VITALS: Ht 170.2 cm; Wt 84.8 kg
[2019-05-09 14:58] VITALS: BP 150/89
[2019-05-09] MEDS ORDERED: MORPHINE SULFATE 2 MG/ML SYR IVP ONE (15:25)
[2019-05-09] MEDS ORDERED: DICYCLOMINE HCL LIQUID 10 MG/5 ML UDC PO ONE (15:25)
[2019-05-09] MEDS ORDERED: LACTULOSE 20 GM/30 ML UDC PO ONE (15:25)
[2019-05-09] MEDS ORDERED: NACL 0.9% 1,000 ML IV SCH (15:25)
[2019-05-09] MEDS ORDERED: METOCLOPRAMIDE 10 MG TAB PO ONE (15:25)
[2019-05-09] MEDS ORDERED: SODIUM PHOSPHATE 118 ML ENEM RC ONE ×2 (15:25→17:25)
--- NOTE | 2019-05-09 15:44 | NUR ---
PT TO CT VIA WC
--- NOTE | 2019-05-09 16:41 | NUR ---
PT REFUSED IV AND MORPHINE/ NS BOLUS WELL. STATED, I JUST DONT THINK I NEED AN IV OR MORPHINE AT THIS TIME---MD NOTIFIED
--- NOTE | 2019-05-09 16:42 | NUR ---
PATIENT INSTRUCTED ON ENEMA AND PLACED ON TOILET
[2019-05-09 16:45] LABS: BASOPHILS % (AUTO) 0.7 % (0.0-2.0); EOSINOPHILS # (AUTO) 0.1 K/uL (0-0.4); EOSINOPHILS % (AUTO) 2.3 % (0.0-4.0); HEMATOCRIT 40.1 % (36-48); HEMOGLOBIN 13.2 g/dL (12.0-16.0); LYMPHOCYTES % (AUTO) 31.8 % (20.5-51.1); MEAN CORPUSCULAR HEMOGLOBIN 31 pg (27-31); MEAN CORPUSCULAR HGB CONC 33 g/dL (33-37); MEAN CORPUSCULAR VOLUME 95.1 fL (80-94); MONOCYTES # (AUTO) 0.5 K/uL (0.8-1.0); MONOCYTES % (AUTO) 7.6 % (1.7-9.3); NEUTROPHILS # (AUTO) 3.6 K/uL (1.8-7.7); NEUTROPHILS % (AUTO) 57.6 % (42.2-75.2); PLATELET COUNT (AUTO) 207 K/uL (140-450); RED BLOOD CELL COUNT(AUTO) 4.22 MIL/uL (4.20-5.40); RED CELL DISTRIBUTION WIDTH 13.5 % (11.6-13.7); WHITE BLOOD COUNT (AUTO) 6.3 K/uL (4.8-10.8)
[2019-05-09 16:52] LABS: APPEARANCE,URINE CLEAR (CLEAR); BILIRUBIN,URINE NEGATIVE (NEGATIVE); BLOOD, URINE NEGATIVE (NEGATIVE); COLOR,URINE YELLOW (YELLOW); LEUKOCYTE ESTERASE ,URINE NEGATIVE (NEGATIVE); NITRITE, URINE NEGATIVE (NEGATIVE); PH,URINE 5.5 (5.0-9.0); UGLUCOSE NEGATIVE (NEGATIVE)
[2019-05-09 17:02] LABS: ANION GAP 12.7 (8-16); CARBON DIOXIDE 28.4 mmol/L (21-32); CHLORIDE 105 mmol/L (98-107); CREATININE 0.8 mg/dL (0.6-1.3); GLUCOSE 92 mg/dL (74-106); POTASSIUM 4.1 mmol/L (3.5-5.1); SODIUM SERUM 142 mmol/L (136-145); UREA NITROGEN, BLOOD 16 mg/dL (7-18)
[2019-05-09 17:05] LABS: AMYLASE 68 U/L (25-115); ASPARTATE AMINOTRANSFERASE 23 U/L (15-37); LIPASE 67 U/L (73-393); TOTAL BILIRUBIN 0.5 mg/dL (0.0-1.0)
--- NOTE | 2019-05-09 17:32 | NUR ---
PT INSRUCTED ON FLEET ENEMA INSTRUCTIONS, PLACED ON TOILET
[2019-05-09] MEDS ORDERED: traMADol 50 MG TAB PO ONE (18:05)
[2019-05-09 19:01] VITALS: BP 132/80
--- NOTE | 2019-05-09 19:02 | NUR ---
Patient discharged with v/s stable. Written and verbal after care instructions given and explained. Patient alert, oriented and verbalized understanding of instructions. Ambulatory with steady gait. All questions addressed prior to discharge. ID band removed. Patient advised to follow up with PMD. Rx of Tramadol and Colace given. Patient educated on indication of medication including possible reaction and side effects. Opportunity to ask questions provided and answered.
== END 2019-05-09 19:02 | disposition home or self-care (01) ==
LOC: MED 14:52
DX: G89.29 Other chronic pain (principal); R10.32 Left lower quadrant pain; K21.9 Gastro-esophageal reflux disease without esophagitis; Z90.49 Acquired absence of other specified parts of digestive tract; Z79.899 Other long term (current) drug therapy
CPT/HCPCS: 36415; 74176; 80053; 81003; 82150; 83690; 85025; 99284; J8597; J2270

== ENCOUNTER 2019-06-12 10:18 | Emergency (ER) | payer OTHER, MEDICAID ==
[~2019-06-12] VITALS: Ht 158.8 cm; Wt 79.8 kg
[2019-06-12 10:27] VITALS: BP 185/106
--- NOTE | 2019-06-12 10:33 | NUR ---
Patient ambulated to bed 5. RN evaluating patient at bedside.
--- NOTE | 2019-06-12 10:44 | NUR ---
hvac maintenance technician at bedside for CXR.
--- NOTE | 2019-06-12 10:58 | NUR ---
C/O SOB & DIZZINESS UPON AWAKENING THIS AM. 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 PT STATES SHE HAS NOT EATEN TODAY. RR EVEN AND UNLABORED, CLEAR LUNGS BILATERALLY. RR 15. 95% RA. PT DENIES PAIN AT THIS TIME. PT ALERT AND AWAKE. AMBULATED TO BED WITH STEADY GAIT. NEURO INTACT. EQUAL ARM ADVERTISING SALES EXECUTIVE, PUPILS PERRL, CLEAR SPEECH. BP HYPERTENSIVE. PMH-ANXIETY, GERD
--- NOTE | 2019-06-12 11:08 | NUR ---
LAB AT BEDSIDE
[2019-06-12 11:21] LABS: BASOPHILS % (AUTO) 0.6 % (0.0-2.0); EOSINOPHILS # (AUTO) 0.1 K/uL (0-0.4); EOSINOPHILS % (AUTO) 2.2 % (0.0-4.0); HEMATOCRIT 37.1 % (36-48); HEMOGLOBIN 12.3 g/dL (12.0-16.0); LYMPHOCYTES # (AUTO) 1.9 K/uL (2.5-16.5); LYMPHOCYTES % (AUTO) 32.3 % (20.5-51.1); MEAN CORPUSCULAR HEMOGLOBIN 31 pg (27-31); MEAN CORPUSCULAR HGB CONC 33 g/dL (33-37); MEAN CORPUSCULAR VOLUME 94.4 fL (80-94); MONOCYTES # (AUTO) 0.4 K/uL (0.8-1.0); MONOCYTES % (AUTO) 7.4 % (1.7-9.3); NEUTROPHILS # (AUTO) 3.4 K/uL (1.8-7.7); NEUTROPHILS % (AUTO) 57.5 % (42.2-75.2); PLATELET COUNT (AUTO) 198 K/uL (140-450); RED BLOOD CELL COUNT(AUTO) 3.93 MIL/uL (4.20-5.40); RED CELL DISTRIBUTION WIDTH 13.5 % (11.6-13.7); WHITE BLOOD COUNT (AUTO) 5.8 K/uL (4.8-10.8)
[2019-06-12 11:52] LABS: ANION GAP 11.3 (8-16); CARBON DIOXIDE 28.7 mmol/L (21-32); CHLORIDE 106 mmol/L (98-107); CREATININE 0.7 mg/dL (0.6-1.3); GLUCOSE 91 mg/dL (74-106); SODIUM SERUM 142 mmol/L (136-145); UREA NITROGEN, BLOOD 13 mg/dL (7-18)
[2019-06-12 11:58] LABS: ALBUMIN 3.6 g/dL (3.4-5.0); ASPARTATE AMINOTRANSFERASE 22 U/L (15-37); TOTAL BILIRUBIN 0.4 mg/dL (0.0-1.0)
--- NOTE | 2019-06-12 12:01 | NUR ---
PT AMBULATES TO BATHROOM W/ STEADY GAIT.
--- NOTE | 2019-06-12 12:51 | NUR ---
Dr. Hagen is evaluating the patient at bedside.
[2019-06-12 13:07] VITALS: BP 142/84
--- NOTE | 2019-06-12 13:07 | NUR ---
Patient discharged with v/s stable. Written and verbal after care instructions given and explained REGARDING ANXIETY AND SOB. Patient alert, oriented and verbalized understanding of instructions. Ambulatory with steady gait. All questions addressed prior to discharge. ID band removed. Patient advised to follow up with PMD. Rx of ATARAX 25 MG given. Patient educated on indication of medication including possible reaction and side effects. Opportunity to ask questions provided and answered. PT GIVEN APPLESAUCE, PUDDING, AND JUICE
== END 2019-06-12 13:07 | disposition home or self-care (01) ==
LOC: MED 10:18
DX: R06.02 Shortness of breath (principal); F41.9 Anxiety disorder, unspecified; K21.9 Gastro-esophageal reflux disease without esophagitis; Z90.49 Acquired absence of other specified parts of digestive tract; Z79.899 Other long term (current) drug therapy
CPT/HCPCS: 36415; 71045; 80053; 84484; 85025; 93005; 99284; Q0092

== ENCOUNTER 2019-10-14 12:39 | Emergency (ER) | payer OTHER, MEDICAID ==
[~2019-10-14] VITALS: Ht 170.2 cm; Wt 78.0 kg
[2019-10-14 12:54] VITALS: BP 110/74
[2019-10-14] MEDS ORDERED: NACL 0.9% 500 ML IV ONE (13:15)
[2019-10-14] MEDS ORDERED: ONDANSETRON 4 MG/2 ML VIAL IVP ONE (13:15)
[2019-10-14] MEDS ORDERED: KETOROLAC 30 MG/ML VIAL IVP ONE ×2 (13:15→14:20)
[2019-10-14] MEDS ORDERED: PANTOPRAZOLE 40 MG INJ VIAL IVP ONE (13:20)
[2019-10-14 13:41] LABS: BASOPHILS % (AUTO) 0.8 % (0.0-2.0); EOSINOPHILS # (AUTO) 0.1 K/uL (0-0.4); EOSINOPHILS % (AUTO) 2.5 % (0.0-4.0); HEMATOCRIT 37.7 % (36-48); HEMOGLOBIN 12.5 g/dL (12.0-16.0); LYMPHOCYTES # (AUTO) 2.2 K/uL (2.5-16.5); LYMPHOCYTES % (AUTO) 36.8 % (20.5-51.1); MEAN CORPUSCULAR HEMOGLOBIN 32 pg (27-31); MEAN CORPUSCULAR HGB CONC 33 g/dL (33-37); MEAN CORPUSCULAR VOLUME 94.9 fL (80-94); MONOCYTES # (AUTO) 0.6 K/uL (0.8-1.0); NEUTROPHILS # (AUTO) 2.9 K/uL (1.8-7.7); NEUTROPHILS % (AUTO) 49.9 % (42.2-75.2); PLATELET COUNT (AUTO) 166 K/uL (140-450); RED BLOOD CELL COUNT(AUTO) 3.97 MIL/uL (4.20-5.40); RED CELL DISTRIBUTION WIDTH 14.1 % (11.6-13.7); WHITE BLOOD COUNT (AUTO) 5.9 K/uL (4.8-10.8)
[2019-10-14 13:56] LABS: ALBUMIN 3.6 g/dL (3.4-5.0); ANION GAP 7.8 (8-16); ASPARTATE AMINOTRANSFERASE 24 U/L (15-37); CARBON DIOXIDE 29.9 mmol/L (21-32); CHLORIDE 105 mmol/L (98-107); GLUCOSE 89 mg/dL (74-106); LIPASE 85 U/L (73-393); POTASSIUM 3.7 mmol/L (3.5-5.1); SODIUM SERUM 139 mmol/L (136-145); TOTAL BILIRUBIN 0.4 mg/dL (0.0-1.0); UREA NITROGEN, BLOOD 12 mg/dL (7-18)
[2019-10-14 14:05] LABS: APPEARANCE,URINE CLEAR (CLEAR); BILIRUBIN,URINE NEGATIVE (NEGATIVE); BLOOD, URINE NEGATIVE (NEGATIVE); COLOR,URINE YELLOW (YELLOW); LEUKOCYTE ESTERASE ,URINE NEGATIVE (NEGATIVE); NITRITE, URINE NEGATIVE (NEGATIVE); UGLUCOSE NEGATIVE (NEGATIVE)
[2019-10-14 17:06] VITALS: BP 136/79
== END 2019-10-14 17:07 | disposition home or self-care (01) ==
LOC: MED 12:39
DX: R10.30 Lower abdominal pain, unspecified (principal); K21.9 Gastro-esophageal reflux disease without esophagitis; Z76.5 Malingerer [conscious simulation]; Z79.899 Other long term (current) drug therapy; Z98.890 Other specified postprocedural states; Z90.49 Acquired absence of other specified parts of digestive tract
CPT/HCPCS: 36415; 74176; 80053; 81003; 83690; 84484; 85025; 93005; 96374; 96375; 96376; 99284; C9113; J1885; J7030; J2405

== ENCOUNTER 2019-10-21 10:32 | Emergency (ER) | payer OTHER, MEDICAID ==
[~2019-10-21] VITALS: Ht 167.6 cm; Wt 76.7 kg
[2019-10-21 10:35] VITALS: BP 135/78
--- NOTE | 2019-10-21 10:41 | NUR ---
PT AMBULATED TO BED 12
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
--- NOTE | 2019-10-21 11:01 | NUR ---
pt ambulated to restroom w/ steady gait.
--- NOTE | 2019-10-21 11:08 | NUR ---
pt resting in bed at lowest position, HOB elevated, side rail x1 , pt connected to air sampling and monitoring and pulse ox.
[2019-10-21] MEDS ORDERED: NACL 0.9% 1,000 ML IV ONE (11:10)
[2019-10-21 11:32] LABS: BASOPHILS # (AUTO) 0.1 K/uL (0.00-0.22); BASOPHILS % (AUTO) 0.9 % (0.0-2.0); EOSINOPHILS # (AUTO) 0.1 K/uL (0-0.4); EOSINOPHILS % (AUTO) 1.2 % (0.0-4.0); HEMATOCRIT 35.7 % (36-48); HEMOGLOBIN 11.9 g/dL (12.0-16.0); LYMPHOCYTES # (AUTO) 1.5 K/uL (2.5-16.5); LYMPHOCYTES % (AUTO) 26.7 % (20.5-51.1); MEAN CORPUSCULAR HEMOGLOBIN 32 pg (27-31); MEAN CORPUSCULAR HGB CONC 33 g/dL (33-37); MEAN CORPUSCULAR VOLUME 94.6 fL (80-94); MONOCYTES # (AUTO) 0.4 K/uL (0.8-1.0); MONOCYTES % (AUTO) 7.3 % (1.7-9.3); NEUTROPHILS # (AUTO) 3.6 K/uL (1.8-7.7); NEUTROPHILS % (AUTO) 63.9 % (42.2-75.2); PLATELET COUNT (AUTO) 166 K/uL (140-450); RED BLOOD CELL COUNT(AUTO) 3.78 MIL/uL (4.20-5.40); RED CELL DISTRIBUTION WIDTH 13.8 % (11.6-13.7); WHITE BLOOD COUNT (AUTO) 5.6 K/uL (4.8-10.8)
[2019-10-21 11:35] LABS: APPEARANCE,URINE CLEAR (CLEAR); BILIRUBIN,URINE NEGATIVE (NEGATIVE); BLOOD, URINE NEGATIVE (NEGATIVE); COLOR,URINE YELLOW (YELLOW); LEUKOCYTE ESTERASE ,URINE TRACE (NEGATIVE); NITRITE, URINE NEGATIVE (NEGATIVE); PH,URINE 5.5 (5.0-9.0); UGLUCOSE NEGATIVE (NEGATIVE)
--- NOTE | 2019-10-21 11:38 | NUR ---
pt ambulated to restroom w/ steady gait
--- NOTE | 2019-10-21 11:46 | NUR ---
pt ambulated to bed from restroom w/ steady gait. pt resting in bed at lowest position, hob elevated, side rail x1 . pt reconnected to ivf , monitoring analyst and pulse ox.
[2019-10-21 11:49] LABS: RBC,URINE 0 /HPF (0-5); WBC,URINE 0-5 /HPF (0-5)
[2019-10-21 11:56] LABS: ALBUMIN 3.3 g/dL (3.4-5.0); ANION GAP 12.8 (8-16); ASPARTATE AMINOTRANSFERASE 22 U/L (15-37); CARBON DIOXIDE 27.9 mmol/L (21-32); CHLORIDE 102 mmol/L (98-107); CREATININE 0.9 mg/dL (0.6-1.3); GLUCOSE 116 mg/dL (74-106); POTASSIUM 3.7 mmol/L (3.5-5.1); SODIUM SERUM 139 mmol/L (136-145); TOTAL BILIRUBIN 0.5 mg/dL (0.0-1.0); UREA NITROGEN, BLOOD 11 mg/dL (7-18)
--- NOTE | 2019-10-21 12:11 | NUR ---
ASSISTED PT TO AMBULATE TO BATHROOM WITH STEADY GAIT.
--- NOTE | 2019-10-21 12:50 | NUR ---
PT AMBULATED TO RESTROOM W/ STEADY GAIT.
--- NOTE | 2019-10-21 12:59 | NUR ---
PT RETURNED FROM RESTROOM W/ STEADY GAIT. PT LAYING IN BED AT LOWEST POSITION, HOB ELEVATED, SIDE RAIL X1. PT CONNECTED TO LOCATION MAN AND PULSE OX.
--- NOTE | 2019-10-21 13:02 | NUR ---
Dr. Young is re-evaluating the patient at bedside.
[2019-10-21 13:50] VITALS: BP 133/55
--- NOTE | 2019-10-21 13:50 | NUR ---
DPatient discharged with v/s stable. Written and verbal after care instructions given and explained. Patient alert, oriented and verbalized understanding of instructions. Ambulatory with steady gait. All questions addressed prior to discharge. ID band removed. Patient advised to follow up with PMD. Rx of Tramadol given. Patient educated on indication of medication including possible reaction and side effects. Opportunity to ask questions provided and answered.
== END 2019-10-21 13:50 | disposition home or self-care (01) ==
LOC: MED 10:32
DX: E86.0 Dehydration (principal); K21.9 Gastro-esophageal reflux disease without esophagitis; R10.9 Unspecified abdominal pain; Z79.899 Other long term (current) drug therapy
CPT/HCPCS: 36415; 80053; 81001; 85025; 99283; J7030

== ENCOUNTER 2019-10-29 13:55 | Emergency (ER) | payer OTHER, MEDICAID ==
[~2019-10-29] VITALS: Ht 170.2 cm; Wt 79.4 kg
[2019-10-29 14:06] VITALS: BP 116/71
--- NOTE | 2019-10-29 14:10 | NUR ---
Pt taken to bed 4.
--- NOTE | 2019-10-29 14:16 | NUR ---
Dr. Padilla is evaluating the patient at bedside.
--- NOTE | 2019-10-29 14:33 | NUR ---
74/F presents to ED with complaints with lower abdominal pain starting today. Patient denies N/V/D. Pt reports being constipated. Patient has been seen by GI, had a colonoscopy 4 months ago and states "everything was normal but I still have pain."
[2019-10-29] MEDS ORDERED: KETOROLAC 60 MG/2 ML VIAL IM ONE (14:35)
[2019-10-29 15:51] VITALS: BP 116/71
== END 2019-10-29 15:51 | disposition home or self-care (01) ==
LOC: MED 13:55
DX: G89.29 Other chronic pain (principal); R10.9 Unspecified abdominal pain; K21.9 Gastro-esophageal reflux disease without esophagitis; Z79.899 Other long term (current) drug therapy
CPT/HCPCS: 96372; 99283; J1885; 96374

== ENCOUNTER 2019-11-01 13:25 | Emergency (ER) | payer OTHER, MEDICAID ==
[~2019-11-01] VITALS: Ht 157.5 cm; Wt 75.7 kg
--- NOTE | 2019-11-01 13:38 | NUR ---
PT AMBULATED TO ER BED 07
[2019-11-01 13:48] VITALS: BP 142/76
--- NOTE | 2019-11-01 13:50 | NUR ---
PT C/O LOWER ABDOMINAL PAIN RADIATING TO BACK FOR 1 WEEK , SEEN AND EXAMINE PREVIOUSLY HERE WITH THE SAME COMPLAINT , MEDS WERE TAKEN WITH NO RELIEF, DENIES N/V .PT AOX 4 , AFIBRILE , AMBULATORY WITH STEADY GAIT, SCE, CBS, FLAT SOFT NABS NONTENDER ABDOMEN. PMHXS UNREMARKABLE.
--- NOTE | 2019-11-01 14:10 | NUR ---
dr hough at bedside evaluating pt.
[2019-11-01] MEDS ORDERED: ONDANSETRON 4 MG ODT PO ONE (14:15)
[2019-11-01] MEDS ORDERED: HYDROcodone/APAP 7.5/325 MG 1 TAB PO ONE (14:15)
[2019-11-01] MEDS ORDERED: DICYCLOMINE HCL LIQUID 20 MG, ALUMINUM HYD/MAG/SIMETHICONE 30 ML, LIDOCAINE VISCOUS 2% ... PO ONE ×3 (14:15)
[2019-11-01] MEDS ORDERED: ALUMINUM HYD/MAG/SIMETHICONE 30 ML UDC ONE (14:20)
[2019-11-01] MEDS ORDERED: LIDOCAINE VISCOUS 2% 20 ML UDC ONE (14:20)
[2019-11-01] MEDS ORDERED: DICYCLOMINE HCL LIQUID 10 MG/5 ML UDC ONE (14:20)
--- NOTE | 2019-11-01 14:31 | NUR ---
LABS AT BEDSIDE
[2019-11-01 14:39] LABS: BASOPHILS % (AUTO) 0.8 % (0.0-2.0); EOSINOPHILS # (AUTO) 0.1 K/uL (0-0.4); HEMATOCRIT 38.6 % (36-48); HEMOGLOBIN 12.7 g/dL (12.0-16.0); LYMPHOCYTES % (AUTO) 35.5 % (20.5-51.1); MEAN CORPUSCULAR HEMOGLOBIN 31 pg (27-31); MEAN CORPUSCULAR HGB CONC 33 g/dL (33-37); MEAN CORPUSCULAR VOLUME 95.2 fL (80-94); MONOCYTES # (AUTO) 0.5 K/uL (0.8-1.0); MONOCYTES % (AUTO) 9.3 % (1.7-9.3); NEUTROPHILS # (AUTO) 3.1 K/uL (1.8-7.7); NEUTROPHILS % (AUTO) 53.4 % (42.2-75.2); PLATELET COUNT (AUTO) 189 K/uL (140-450); RED BLOOD CELL COUNT(AUTO) 4.05 MIL/uL (4.20-5.40); RED CELL DISTRIBUTION WIDTH 14.2 % (11.6-13.7); WHITE BLOOD COUNT (AUTO) 5.8 K/uL (4.8-10.8)
[2019-11-01 14:58] LABS: ALBUMIN 3.9 g/dL (3.4-5.0); ANION GAP 12.4 (8-16); ASPARTATE AMINOTRANSFERASE 25 U/L (15-37); CARBON DIOXIDE 26.7 mmol/L (21-32); CHLORIDE 105 mmol/L (98-107); CREATININE 0.9 mg/dL (0.6-1.3); GLUCOSE 101 mg/dL (74-106); LIPASE 53 U/L (73-393); POTASSIUM 4.1 mmol/L (3.5-5.1); SODIUM SERUM 140 mmol/L (136-145); TOTAL BILIRUBIN 0.6 mg/dL (0.0-1.0); UREA NITROGEN, BLOOD 6 mg/dL (7-18)
[2019-11-01 16:43] VITALS: BP 142/76
--- NOTE | 2019-11-01 16:43 | NUR ---
Patient discharged with v/s stable. Written and verbal after care instructions given and explained regarding chronic pain Patient alert, oriented and verbalized understanding of instructions. Ambulatory with steady gait. All questions addressed prior to discharge. ID band removed. Patient advised to follow up with PMD. Rx of colace, pepcid and mylanta given. Patient educated on indication of medication including possible reaction and side effects. Opportunity to ask questions provided and answered.
== END 2019-11-01 16:43 | disposition home or self-care (01) ==
LOC: MED 13:25
DX: G89.29 Other chronic pain (principal); K59.00 Constipation, unspecified; K21.9 Gastro-esophageal reflux disease without esophagitis; Z79.899 Other long term (current) drug therapy
CPT/HCPCS: 36415; 74018; 80053; 81002; 83690; 85025; 99284; Q0162

== ENCOUNTER 2019-11-13 17:00 | Emergency (ER) | payer OTHER, MEDICAID ==
[~2019-11-13] VITALS: Ht 170.2 cm; Wt 75.7 kg
[2019-11-13 17:11] VITALS: BP 120/67
--- NOTE | 2019-11-13 17:28 | NUR ---
PT TAKEN TO CT VIA WHEELCHAIR
--- NOTE | 2019-11-13 17:30 | NUR ---
74 Y/O F C/C LOWER ABDOMINAL PAIN, 9/10, PRESSURE SENSATION, NON RADIATING, WALKING EXACERBATES, REST ALLEVIATES X 1 DAY. PER PT DENIES NVD. NKA. NO HX. NO RX. SX APPENDICITIS. SIDE RAIL X1.
--- NOTE | 2019-11-13 17:45 | NUR ---
PT C/O UMBILICAL/MEDIAL ABDOMINAL PAIN. SKIN IS PINK/WARM/DRY; AAOX4 WITH EVEN AND STEADY GAIT; LUNGS CLEAR BL; HR EVEN AND REGULAR; PT DENIES ANY NAUSEA, VOMITING, FEVER, CP, SOB, OR COUGH AT THIS TIME; PATIENT STATES PAIN OF 9/10 AT THIS TIME; VSS; PATIENT POSITIONED FOR COMFORT; HOB ELEVATED; BEDRAILS UP X1; BED DOWN. ER MD MADE AWARE OF PT STATUS.
[2019-11-13] MEDS ORDERED: KETOROLAC 30 MG/ML VIAL IVP ONE (17:50)
[2019-11-13] MEDS ORDERED: NACL 0.9% 500 ML IV ONE (17:50)
[2019-11-13 18:07] LABS: BASOPHILS % (AUTO) 0.6 % (0.0-2.0); EOSINOPHILS # (AUTO) 0.1 K/uL (0-0.4); EOSINOPHILS % (AUTO) 2.4 % (0.0-4.0); HEMATOCRIT 35.7 % (36-48); HEMOGLOBIN 11.9 g/dL (12.0-16.0); LYMPHOCYTES # (AUTO) 1.8 K/uL (2.5-16.5); LYMPHOCYTES % (AUTO) 34.3 % (20.5-51.1); MEAN CORPUSCULAR HEMOGLOBIN 32 pg (27-31); MEAN CORPUSCULAR HGB CONC 33 g/dL (33-37); MEAN CORPUSCULAR VOLUME 95.5 fL (80-94); MONOCYTES # (AUTO) 0.6 K/uL (0.8-1.0); MONOCYTES % (AUTO) 11.8 % (1.7-9.3); NEUTROPHILS # (AUTO) 2.7 K/uL (1.8-7.7); NEUTROPHILS % (AUTO) 50.9 % (42.2-75.2); PLATELET COUNT (AUTO) 175 K/uL (140-450); RED BLOOD CELL COUNT(AUTO) 3.74 MIL/uL (4.20-5.40); RED CELL DISTRIBUTION WIDTH 14.8 % (11.6-13.7); WHITE BLOOD COUNT (AUTO) 5.2 K/uL (4.8-10.8)
--- NOTE | 2019-11-13 18:11 | NUR ---
RAD AT BEDSIDE
[2019-11-13 18:25] LABS: ALBUMIN 3.5 g/dL (3.4-5.0); ANION GAP 13.4 (8-16); ASPARTATE AMINOTRANSFERASE 29 U/L (15-37); CARBON DIOXIDE 27.4 mmol/L (21-32); CHLORIDE 106 mmol/L (98-107); CREATININE 0.8 mg/dL (0.6-1.3); GLUCOSE 94 mg/dL (74-106); POTASSIUM 3.8 mmol/L (3.5-5.1); SODIUM SERUM 143 mmol/L (136-145); TOTAL BILIRUBIN 0.5 mg/dL (0.0-1.0); UREA NITROGEN, BLOOD 9 mg/dL (7-18)
[2019-11-13 18:59] LABS: PROTHROMBIN TIME 10.9 secs (10.8-13.4)
--- NOTE | 2019-11-13 19:22 | NUR ---
REPORT GIVEN TO LISA CHARGE NURSE FOR CONTINUITY OF CARE
[2019-11-13 20:01] VITALS: BP 133/81
--- NOTE | 2019-11-13 20:02 | NUR ---
Patient discharged with v/s stable. Written and verbal after care instructions given and explained. Patient verbalized understanding. Ambulatory with steady gait. All questions addressed prior to discharge. Advised to follow up with PMD. PT is aaox3, ambulatory and no pain noted.
== END 2019-11-13 20:02 | disposition home or self-care (01) ==
LOC: MED 17:00
DX: J44.1 Chronic obstructive pulmonary disease with (acute) exacerbation (principal); E86.0 Dehydration; K21.9 Gastro-esophageal reflux disease without esophagitis; Z79.899 Other long term (current) drug therapy; Z90.49 Acquired absence of other specified parts of digestive tract
CPT/HCPCS: 36415; 71045; 74176; 80053; 84484; 85025; 85610; 85730; 93005; 96374; 99285; J1885; Q0092; J7030

== ENCOUNTER 2019-11-27 11:22 | Emergency (ER) | payer OTHER, MEDICAID ==
[~2019-11-27] VITALS: Ht 167.6 cm; Wt 65.8 kg
[2019-11-27 11:30] VITALS: BP 145/57
[2019-11-27 11:49] LABS: BASOPHILS # (AUTO) 0.1 K/uL (0.00-0.22); BASOPHILS % (AUTO) 0.9 % (0.0-2.0); EOSINOPHILS # (AUTO) 0.1 K/uL (0-0.4); EOSINOPHILS % (AUTO) 1.8 % (0.0-4.0); HEMATOCRIT 33.7 % (36-48); HEMOGLOBIN 11.2 g/dL (12.0-16.0); LYMPHOCYTES # (AUTO) 2.2 K/uL (2.5-16.5); LYMPHOCYTES % (AUTO) 34.3 % (20.5-51.1); MEAN CORPUSCULAR HEMOGLOBIN 32 pg (27-31); MEAN CORPUSCULAR HGB CONC 33 g/dL (33-37); MEAN CORPUSCULAR VOLUME 96.9 fL (80-94); MONOCYTES # (AUTO) 0.6 K/uL (0.8-1.0); MONOCYTES % (AUTO) 9.8 % (1.7-9.3); NEUTROPHILS # (AUTO) 3.4 K/uL (1.8-7.7); NEUTROPHILS % (AUTO) 53.2 % (42.2-75.2); PLATELET COUNT (AUTO) 209 K/uL (140-450); RED BLOOD CELL COUNT(AUTO) 3.47 MIL/uL (4.20-5.40); RED CELL DISTRIBUTION WIDTH 14.6 % (11.6-13.7); WHITE BLOOD COUNT (AUTO) 6.3 K/uL (4.8-10.8)
[2019-11-27 12:14] LABS: ALBUMIN 3.4 g/dL (3.4-5.0); ANION GAP 11.3 (8-16); ASPARTATE AMINOTRANSFERASE 27 U/L (15-37); CARBON DIOXIDE 27.3 mmol/L (21-32); CHLORIDE 105 mmol/L (98-107); CREATININE 0.8 mg/dL (0.6-1.3); GLUCOSE 96 mg/dL (74-106); LIPASE 91 U/L (73-393); POTASSIUM 3.6 mmol/L (3.5-5.1); SODIUM SERUM 140 mmol/L (136-145); TOTAL BILIRUBIN 0.5 mg/dL (0.0-1.0); UREA NITROGEN, BLOOD 15 mg/dL (7-18)
[2019-11-27 13:09] LABS: APPEARANCE,URINE CLEAR (CLEAR); BILIRUBIN,URINE NEGATIVE (NEGATIVE); BLOOD, URINE NEGATIVE (NEGATIVE); COLOR,URINE YELLOW (YELLOW); LEUKOCYTE ESTERASE ,URINE NEGATIVE (NEGATIVE); NITRITE, URINE NEGATIVE (NEGATIVE); PH,URINE 6.5 (5.0-9.0); UGLUCOSE NEGATIVE (NEGATIVE)
[2019-11-27] MEDS ORDERED: FAMOTIDINE 20 MG TAB PO ONE (13:55)
[2019-11-27] MEDS ORDERED: DICYCLOMINE HCL LIQUID 20 MG, ALUMINUM HYD/MAG/SIMETHICONE 30 ML, LIDOCAINE VISCOUS 2% ... PO ONE ×3 (13:55)
[2019-11-27] MEDS ORDERED: ALUMINUM HYD/MAG/SIMETHICONE 30 ML UDC ONE (14:01)
[2019-11-27] MEDS ORDERED: LIDOCAINE VISCOUS 2% 20 ML UDC ONE (14:01)
[2019-11-27] MEDS ORDERED: DICYCLOMINE HCL LIQUID 10 MG/5 ML UDC ONE (14:01)
[2019-11-27 14:25] VITALS: BP 156/82
== END 2019-11-27 14:25 | disposition home or self-care (01) ==
LOC: MED 11:22
DX: R10.9 Unspecified abdominal pain (principal); D64.9 Anemia, unspecified; F45.0 Somatization disorder; K21.9 Gastro-esophageal reflux disease without esophagitis; R03.0 Elevated blood-pressure reading, without diagnosis of hypertension; Z90.49 Acquired absence of other specified parts of digestive tract
CPT/HCPCS: 36415; 80053; 81002; 81003; 81025; 83690; 85025; 99283

== ENCOUNTER 2019-12-08 14:59 | Emergency (ER) | payer OTHER, MEDICAID ==
[~2019-12-08] VITALS: Ht 170.2 cm; Wt 75.7 kg
[2019-12-08 15:07] VITALS: BP 129/79
--- NOTE | 2019-12-08 15:15 | NUR ---
PT AMB TO BED 5.
--- NOTE | 2019-12-08 15:21 | NUR ---
C/O DIZZINESS AND SHAKING AFTER TAKING NORCO THIS MORNING. STATES 6/10 ABD PAIN AT THIS TIME. DENIES N/V/D. PER PT SHE TOOK 2 NORCO FOR ABD PAIN AND BEGAN TO FEEL DIZZY. RR EVEN AND UNLABORED. AWAKE AND ALERT. POSITIONED FOR COMFORT. VSS
--- NOTE | 2019-12-08 15:22 | NUR ---
DR SHARMA AT BEDSIDE EXAMINING PT
[2019-12-08] MEDS ORDERED: LORazepam 1 MG TAB PO ONE (15:25)
[2019-12-08 16:33] VITALS: BP 129/79
--- NOTE | 2019-12-08 16:34 | NUR ---
Patient discharged with v/s stable. Written and verbal after care instructions given and explained. Patient verbalized understanding. Ambulatory with steady gait. All questions addressed prior to discharge. Advised to follow up with PMD.
== END 2019-12-08 16:34 | disposition home or self-care (01) ==
LOC: MED 14:59
DX: F41.9 Anxiety disorder, unspecified (principal); K21.9 Gastro-esophageal reflux disease without esophagitis; Z90.49 Acquired absence of other specified parts of digestive tract; Z79.899 Other long term (current) drug therapy
CPT/HCPCS: 93005; 99283

== ENCOUNTER 2019-12-31 08:05 | Emergency (ER) | payer OTHER, MEDICAID ==
[~2019-12-31] VITALS: Ht 170.2 cm; Wt 75.7 kg
[2019-12-31 08:21] VITALS: BP 188/89
--- NOTE | 2019-12-31 08:30 | NUR ---
PT C/O DIZZINESS, HAND SHAKINGS, GENERALIZED WEAKNESS, PALPITATIONS, AND STATES HER HEART IS COMING OUT FOR TWO DAYS. DENIES FEVER, COUGH, CP, SOB, N/V/D. AAOX4 WITH EVEN AND STEADY GAIT; LUNGS CLEAR BL; HR EVEN AND REGULAR; PT DENIES ANY FEVER, CP, SOB, OR COUGH AT THIS TIME; PATIENT STATES PAIN OF 0/10 AT THIS TIME; VSS; PATIENT POSITIONED FOR COMFORT; HOB ELEVATED; BEDRAILS UP X2; BED DOWN. ER MD MADE AWARE OF PT STATUS.
--- NOTE | 2019-12-31 08:33 | NUR ---
DR. SCHROEDER IS EVALUATING PT AT BEDSIDE.
[2019-12-31] MEDS ORDERED: LORazepam 1 MG TAB PO ONE (08:40)
[2019-12-31] MEDS ORDERED: ALPRAZolam 0.5 MG TAB PO STA (09:35)
--- NOTE | 2019-12-31 09:56 | NUR ---
PT AMBULATED TO BATHROOM WITH STEADY GAIT.
[2019-12-31] MEDS ORDERED: ELA50 PO (10:24)
--- NOTE | 2019-12-31 11:03 | NUR ---
PT IS SLEEPING IN THE BED. VSS.
--- NOTE | 2019-12-31 11:30 | NUR ---
ASKED PT IF SHE NEEDS A TRANSPORTATION ARRANGEMENT OR US TO CALL SOMEONE TO PICK HER UP. SHE STATES: "I WILL CALL SOMEBODY MYSELF."
[2019-12-31 11:32] VITALS: BP 152/71
[2019-12-31] MEDS ORDERED: AMITRIPTYLINE 50 MG TAB PO SCH (21:00)
== END 2019-12-31 12:32 | disposition home or self-care (01) ==
LOC: MED 08:05
DX: F41.9 Anxiety disorder, unspecified (principal); F12.929 Cannabis use, unspecified with intoxication, unspecified; K21.9 Gastro-esophageal reflux disease without esophagitis; Z79.899 Other long term (current) drug therapy
CPT/HCPCS: 93005; 99283

== ENCOUNTER 2020-01-04 15:29 | Emergency (ER) | payer OTHER, MEDICAID ==
[~2020-01-04] VITALS: Ht 170.2 cm; Wt 75.7 kg
[~2020-01-04 15:29] MED LIST changes: +ELA50 PO
[2020-01-04 15:33] VITALS: BP 137/79
--- NOTE | 2020-01-04 15:40 | NUR ---
PT AMB TO [facility]
--- NOTE | 2020-01-04 15:43 | NUR ---
C/O HEART PALPITATIONS WITH ANXIETY X TODAY. HT HR 75 BPM. RR 24, O2 SAT 96%, BP 137/79 AT THIS TIME. PT A0X4. STATES SHE WENT TO [place] [facility] BUT THE WAIT WAS TOO LONG. PT IS A FREQUENT FLYER. PT AMBULATORY WITH STEADY GAIT. MED HX: GALL BLADDER REMOVAL, GERD, ANXIETY
[2020-01-04] MEDS ORDERED: LORazepam 1 MG TAB PO ONE (16:20)
--- NOTE | 2020-01-04 16:37 | NUR ---
PT RETURNED FROM RAD
--- NOTE | 2020-01-04 16:56 | NUR ---
Louisa vega in [facility] - 01/04/20 at 1657 by [email or web address] PT STATES RELIEF FROM PAIN POST NOROC, JAMES
--- NOTE | 2020-01-04 16:57 | NUR ---
PT STATES RELIEF FROM ANXIETI POST ATIVAN, NADR
--- NOTE | 2020-01-04 17:00 | NUR ---
accu check 84
[2020-01-04 17:57] LABS: BASOPHILS % (AUTO) 0.7 % (0.0-2.0); EOSINOPHILS # (AUTO) 0.1 K/uL (0-0.4); EOSINOPHILS % (AUTO) 1.9 % (0.0-4.0); HEMOGLOBIN 12.3 g/dL (12.0-16.0); LYMPHOCYTES # (AUTO) 1.7 K/uL (2.5-16.5); LYMPHOCYTES % (AUTO) 24.2 % (20.5-51.1); MEAN CORPUSCULAR HEMOGLOBIN 33 pg (27-31); MEAN CORPUSCULAR HGB CONC 33 g/dL (33-37); MEAN CORPUSCULAR VOLUME 97.9 fL (80-94); MONOCYTES # (AUTO) 0.6 K/uL (0.8-1.0); NEUTROPHILS # (AUTO) 4.5 K/uL (1.8-7.7); NEUTROPHILS % (AUTO) 65.2 % (42.2-75.2); PLATELET COUNT (AUTO) 248 K/uL (140-450); RED BLOOD CELL COUNT(AUTO) 3.78 MIL/uL (4.20-5.40); RED CELL DISTRIBUTION WIDTH 13.7 % (11.6-13.7); WHITE BLOOD COUNT (AUTO) 6.9 K/uL (4.8-10.8)
[2020-01-04 18:12] LABS: ALBUMIN 3.9 g/dL (3.4-5.0); ANION GAP 16.7 (8-16); ASPARTATE AMINOTRANSFERASE 27 U/L (15-37); CARBON DIOXIDE 25.8 mmol/L (21-32); CHLORIDE 104 mmol/L (98-107); CREATININE 0.7 mg/dL (0.6-1.3); GLUCOSE 91 mg/dL (74-106); POTASSIUM 3.5 mmol/L (3.5-5.1); SODIUM SERUM 143 mmol/L (136-145); TOTAL BILIRUBIN 0.5 mg/dL (0.0-1.0); UREA NITROGEN, BLOOD 9 mg/dL (7-18)
[2020-01-04 18:42] VITALS: BP 130/82
--- NOTE | 2020-01-04 18:42 | NUR ---
Patient discharged with v/s stable. Written and verbal after care instructions given and explained REGARDING SOCIAL ANXIETY DISORDER AND PALPITATIONS. Patient alert, oriented and verbalized understanding of instructions. Ambulatory with steady gait. All questions addressed prior to discharge. ID band removed. Patient advised to follow up with PMD. Rx of ATIVAN given. Patient educated on indication of medication including possible reaction and side effects. Opportunity to ask questions provided and answered. PT INSTRUCTED TO PRACTICE DISTRACTION TECHNIQUES SUCH TV, MUSIC, EXERCISE, ETC
== END 2020-01-04 18:42 | disposition home or self-care (01) ==
LOC: MED 15:29
DX: F41.1 Generalized anxiety disorder (principal); R00.2 Palpitations; K21.9 Gastro-esophageal reflux disease without esophagitis; Z79.899 Other long term (current) drug therapy
CPT/HCPCS: 36415; 71045; 80053; 84484; 85025; 93005; 99285

== ENCOUNTER 2020-01-09 12:34 | Emergency (ER) | payer OTHER, MEDICAID ==
[~2020-01-09] VITALS: Ht 170.2 cm; Wt 71.2 kg
[2020-01-09 12:36] VITALS: BP 117/72
--- NOTE | 2020-01-09 12:47 | NUR ---
PT AMB TO BED 7.
--- NOTE | 2020-01-09 12:50 | NUR ---
C/O MID ABDOMINAL PAIN X 2 HOURS AGO. LAST BM NORMAL X THIS AM. DENIES N/V /D.PT AOX4, AFIBRILE , AMBULATORY WITH STEADY GAIT , SCE , FLAT SOFT ABDOMEN. MED HX: ANXIETY
--- NOTE | 2020-01-09 12:53 | NUR ---
lab at bedside.
--- NOTE | 2020-01-09 12:54 | NUR ---
PT STATE WANTS TO SEE FIRST BEFORE SHE WILL GIVE BLOOD FOR LAB.
--- NOTE | 2020-01-09 13:07 | NUR ---
DR KAUR AT BEDSIDE EVALUATING PT.
[2020-01-09] MEDS ORDERED: KETOROLAC 30 MG/ML VIAL IVP ONE (13:10)
[2020-01-09 13:35] LABS: BASOPHILS % (AUTO) 0.5 % (0.0-2.0); EOSINOPHILS # (AUTO) 0.1 K/uL (0-0.4); EOSINOPHILS % (AUTO) 1.3 % (0.0-4.0); HEMATOCRIT 34.9 % (36-48); HEMOGLOBIN 11.6 g/dL (12.0-16.0); LYMPHOCYTES # (AUTO) 1.7 K/uL (2.5-16.5); LYMPHOCYTES % (AUTO) 24.7 % (20.5-51.1); MEAN CORPUSCULAR HEMOGLOBIN 32 pg (27-31); MEAN CORPUSCULAR HGB CONC 33 g/dL (33-37); MEAN CORPUSCULAR VOLUME 97.6 fL (80-94); MONOCYTES # (AUTO) 0.6 K/uL (0.8-1.0); MONOCYTES % (AUTO) 8.2 % (1.7-9.3); NEUTROPHILS # (AUTO) 4.5 K/uL (1.8-7.7); NEUTROPHILS % (AUTO) 65.3 % (42.2-75.2); PLATELET COUNT (AUTO) 222 K/uL (140-450); RED BLOOD CELL COUNT(AUTO) 3.57 MIL/uL (4.20-5.40); RED CELL DISTRIBUTION WIDTH 13.5 % (11.6-13.7); WHITE BLOOD COUNT (AUTO) 6.9 K/uL (4.8-10.8)
--- NOTE | 2020-01-09 13:40 | NUR ---
PT REFUSED CT SCAN, STATED TORADOL HELPED; NO PAIN AT THIS TIME. SPOKE WITH PT, OKAY FOR DC HOME AFTER ALL LABS HAVE RESULTED.
--- NOTE | 2020-01-09 13:45 | NUR ---
PT REFUSE CTSCAN DR KAUR INFORMED AND AWARE.
[2020-01-09 13:50] LABS: ALBUMIN 3.6 g/dL (3.4-5.0); ANION GAP 13.4 (8-16); ASPARTATE AMINOTRANSFERASE 78 U/L (15-37); CARBON DIOXIDE 25.9 mmol/L (21-32); CHLORIDE 103 mmol/L (98-107); CREATININE 0.8 mg/dL (0.6-1.3); GLUCOSE 89 mg/dL (74-106); LIPASE 70 U/L (73-393); POTASSIUM 3.3 mmol/L (3.5-5.1); SODIUM SERUM 139 mmol/L (136-145); TOTAL BILIRUBIN 0.9 mg/dL (0.0-1.0); UREA NITROGEN, BLOOD 10 mg/dL (7-18)
[2020-01-09 14:05] VITALS: BP 117/72
== END 2020-01-09 14:06 | disposition home or self-care (01) ==
LOC: MED 12:34
DX: R10.84 Generalized abdominal pain (principal); K21.9 Gastro-esophageal reflux disease without esophagitis; F41.9 Anxiety disorder, unspecified; Z90.49 Acquired absence of other specified parts of digestive tract; Z79.899 Other long term (current) drug therapy
CPT/HCPCS: 80053; 81002; 81025; 83690; 85025; 96374; 99283; J1885

== ENCOUNTER 2020-01-11 12:28 | Emergency (ER) | payer OTHER, MEDICAID ==
[~2020-01-11] VITALS: Ht 160 cm; Wt 69.4 kg
[2020-01-11 12:31] VITALS: BP 132/80
--- NOTE | 2020-01-11 12:36 | NUR ---
PT AMBULATED TO BED 3 , STEADY GAIT.
--- NOTE | 2020-01-11 12:39 | NUR ---
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
[2020-01-11 13:08] LABS: BASOPHILS # (AUTO) 0.2 K/uL (0.00-0.22); BASOPHILS % (AUTO) 3.3 % (0.0-2.0); EOSINOPHILS # (AUTO) 0.1 K/uL (0-0.4); EOSINOPHILS % (AUTO) 2.4 % (0.0-4.0); HEMATOCRIT 34.8 % (36-48); HEMOGLOBIN 11.7 g/dL (12.0-16.0); LYMPHOCYTES # (AUTO) 1.5 K/uL (2.5-16.5); LYMPHOCYTES % (AUTO) 28.4 % (20.5-51.1); MEAN CORPUSCULAR HEMOGLOBIN 32 pg (27-31); MEAN CORPUSCULAR HGB CONC 34 g/dL (33-37); MEAN CORPUSCULAR VOLUME 96.1 fL (80-94); MONOCYTES # (AUTO) 0.4 K/uL (0.8-1.0); MONOCYTES % (AUTO) 8.4 % (1.7-9.3); NEUTROPHILS % (AUTO) 57.5 % (42.2-75.2); PLATELET COUNT (AUTO) 235 K/uL (140-450); RED BLOOD CELL COUNT(AUTO) 3.62 MIL/uL (4.20-5.40); RED CELL DISTRIBUTION WIDTH 13.4 % (11.6-13.7); WHITE BLOOD COUNT (AUTO) 5.3 K/uL (4.8-10.8)
[2020-01-11] MEDS ORDERED: DICYCLOMINE HCL LIQUID 20 MG, ALUMINUM HYD/MAG/SIMETHICONE 30 ML, LIDOCAINE VISCOUS 2% ... PO ONE ×3 (14:00)
[2020-01-11] MEDS ORDERED: ALUMINUM HYD/MAG/SIMETHICONE 30 ML UDC ONE (14:03)
[2020-01-11] MEDS ORDERED: DICYCLOMINE HCL LIQUID 10 MG/5 ML UDC ONE (14:03)
[2020-01-11] MEDS ORDERED: LIDOCAINE VISCOUS 2% 20 ML UDC ONE (14:03)
[2020-01-11 14:07] LABS: ALBUMIN 3.7 g/dL (3.4-5.0); ANION GAP 14.3 (8-16); ASPARTATE AMINOTRANSFERASE 92 U/L (15-37); CARBON DIOXIDE 23.2 mmol/L (21-32); CHLORIDE 106 mmol/L (98-107); CREATININE 0.7 mg/dL (0.6-1.3); FREE T4 (FREE THYROXINE) 1.15 ng/dL (0.76-1.46); GLUCOSE 99 mg/dL (74-106); POTASSIUM 3.5 mmol/L (3.5-5.1); SALICYLATE < 2.8 mg/dL (2.8-20.0); SODIUM SERUM 140 mmol/L (136-145); TOTAL BILIRUBIN 0.6 mg/dL (0.0-1.0); UREA NITROGEN, BLOOD 6 mg/dL (7-18)
[2020-01-11 14:08] LABS: ACETAMINOPHEN < 0.5 ug/ml (10-30)
[2020-01-11 16:36] VITALS: BP 132/80
--- NOTE | 2020-01-11 16:36 | NUR ---
Patient discharged with v/s stable. Written and verbal after care instructions given and explained. Patient verbalized understanding. Ambulatory with steady gait. All questions addressed prior to discharge. Advised to follow up with PMD. rx lexapro given
== END 2020-01-11 16:36 | disposition home or self-care (01) ==
LOC: MED 12:28
DX: R10.9 Unspecified abdominal pain (principal); F41.9 Anxiety disorder, unspecified; K21.9 Gastro-esophageal reflux disease without esophagitis; Z90.49 Acquired absence of other specified parts of digestive tract; Z79.899 Other long term (current) drug therapy
CPT/HCPCS: 36415; 80053; 84439; 84443; 85025; 99283; G0480; G0482

== ENCOUNTER 2020-01-12 16:21 | Emergency (ER) | payer OTHER, MEDICAID ==
[~2020-01-12] VITALS: Ht 162.6 cm; Wt 70.3 kg
[2020-01-12 16:33] VITALS: BP 119/56
--- NOTE | 2020-01-12 16:41 | NUR ---
C/O RECURRING ANXIETY--HAS UPCOMING APPT WITH THERAPIST TOMORROW PT ALSO ADMITS VISITING THIS HOSPITAL AND NEIGHBORING HOSPITALS DUE TO HER ANXIETY ENCOURAGED NOT TO MISS HER APPT WITH THERAPIST ANY MORE. PT RECEIVED BENTYL YESTERDAY PO FOR ABDMINAL PAIN, PT STATES IT HELPED HER ANXIETY WANTS ANOTHER DOSE
[2020-01-12] MEDS ORDERED: ALUMINUM HYD/MAG/SIMETHICONE 30 ML UDC PO ONE (16:45)
[2020-01-12] MEDS ORDERED: DICYCLOMINE HCL LIQUID 10 MG/5 ML UDC PO ONE (16:45)
[2020-01-12 17:01] VITALS: BP 119/56
--- NOTE | 2020-01-12 17:02 | NUR ---
Patient discharged with v/s stable. Written and verbal after care instructions given and explained. Patient alert, oriented and verbalized understanding of instructions. Ambulatory with steady gait. All questions addressed prior to discharge. ID band removed. Patient advised to follow up with PMD. Rx of BENTYL given. Patient educated on indication of medication including possible reaction and side effects. Opportunity to ask questions provided and answered.
== END 2020-01-12 17:02 | disposition home or self-care (01) ==
LOC: MED 16:21
DX: F41.1 Generalized anxiety disorder (principal); R10.9 Unspecified abdominal pain; K21.9 Gastro-esophageal reflux disease without esophagitis; Z79.899 Other long term (current) drug therapy
CPT/HCPCS: 99283

== ENCOUNTER 2020-01-17 12:52 | Emergency (ER) | payer OTHER, MEDICAID ==
[~2020-01-17] VITALS: Ht 170.2 cm; Wt 69.4 kg
[2020-01-17 12:58] VITALS: BP 112/48
--- NOTE | 2020-01-17 13:11 | NUR ---
C/O RECURRING ANXIETY---PT REQUESTING BENTYL PO , ADDS IT HELPS WITH HER ANXIETY PT HAS BEEN SEEN IN OUR ER FREQUENTLY----
--- NOTE | 2020-01-17 13:55 | NUR ---
Patient being evaluated by Dr. Jaimes in chair A.
[2020-01-17 14:29] VITALS: BP 112/48
[2020-01-17] MEDS ORDERED: DICYCLOMINE HCL LIQUID 10 MG/5 ML UDC PO SCH (14:30)
[2020-01-17] MEDS ORDERED: ALUMINUM HYD/MAG/SIMETHICONE 30 ML UDC PO SCH (14:30)
== END 2020-01-17 14:29 | disposition home or self-care (01) ==
LOC: MED 12:52
DX: F41.9 Anxiety disorder, unspecified (principal); R10.9 Unspecified abdominal pain; K21.9 Gastro-esophageal reflux disease without esophagitis; Z79.899 Other long term (current) drug therapy
CPT/HCPCS: 99283

== ENCOUNTER 2020-01-20 06:20 | Emergency (ER) | payer OTHER, MEDICAID ==
[~2020-01-20] VITALS: Ht 170.2 cm; Wt 71.2 kg
[2020-01-20 06:29] VITALS: BP 128/63
[2020-01-20] MEDS ORDERED: HYDROXYZINE HYDROCHLORIDE 25 MG TAB PO ONE (06:35)
[2020-01-20 06:52] VITALS: BP 133/62
== END 2020-01-20 06:53 | disposition home or self-care (01) ==
LOC: MED 06:20
DX: F41.9 Anxiety disorder, unspecified (principal); K21.9 Gastro-esophageal reflux disease without esophagitis; Z90.49 Acquired absence of other specified parts of digestive tract; Z79.899 Other long term (current) drug therapy
CPT/HCPCS: 99283

== ENCOUNTER 2020-02-10 12:12 | Emergency (ER) | payer OTHER, MEDICAID ==
[~2020-02-10] VITALS: Ht 165.1 cm; Wt 68.0 kg
[2020-02-10 12:19] VITALS: BP 147/48
--- NOTE | 2020-02-10 12:19 | NUR ---
PATIENT AMBULATED TO ER BED 04
--- NOTE | 2020-02-10 12:27 | NUR ---
74/F presents to ED with complaints of generalized abdominal pain, dizziness and stating "I can't see. I can't walk." Pt states her symptoms started this morning around 0500. Patient is very anxious while in bed and tearful stating "The doctors don't believe me but I feel like this everyday." Pt states she is having trouble walking d/t feeling dizzy. Pt denies any syncope. Pt also reports she was seen at [facility] yesterday and was given RX for Meclizine and Lorazepam and pt states "They don't help they make me feel more dizzy." Pt denies N/V/D. Denies fever or chills. Patient placed in position of comfort and waiting for ERMD. VSS at this time.
--- NOTE | 2020-02-10 12:44 | NUR ---
Pt report given to Jake CAMPBELL. Transfer of care at this time.
--- NOTE | 2020-02-10 12:45 | NUR ---
PT UP AND WALKING AROUND ER. ADVISED PT TO SIT ON HER BED SINCE SHE IS HERE FOR DIZZINESS AND FALLS. PT SITTING IN BED AT THIS TIME.
--- NOTE | 2020-02-10 12:51 | NUR ---
PT AMBULATED TO RESTROOM
--- NOTE | 2020-02-10 13:35 | NUR ---
PT TAKEN TO CT VIA LARRY
[2020-02-10] MEDS: NACL 0.9% 1,000 ML IV ONE (14:09)
--- NOTE | 2020-02-10 14:25 | NUR ---
LAB AT BEDSIDE
[2020-02-10 14:42] LABS: BASOPHILS # (AUTO) 0.1 K/uL (0.00-0.22); BASOPHILS % (AUTO) 1.2 % (0.0-2.0); EOSINOPHILS # (AUTO) 0.2 K/uL (0-0.4); EOSINOPHILS % (AUTO) 3.2 % (0.0-4.0); HEMATOCRIT 34.2 % (36-48); HEMOGLOBIN 11.3 g/dL (12.0-16.0); LYMPHOCYTES # (AUTO) 1.9 K/uL (2.5-16.5); LYMPHOCYTES % (AUTO) 37.7 % (20.5-51.1); MEAN CORPUSCULAR HEMOGLOBIN 32 pg (27-31); MEAN CORPUSCULAR HGB CONC 33 g/dL (33-37); MEAN CORPUSCULAR VOLUME 97.4 fL (80-94); MONOCYTES # (AUTO) 0.6 K/uL (0.8-1.0); MONOCYTES % (AUTO) 11.6 % (1.7-9.3); NEUTROPHILS # (AUTO) 2.4 K/uL (1.8-7.7); NEUTROPHILS % (AUTO) 46.3 % (42.2-75.2); PLATELET COUNT (AUTO) 198 K/uL (140-450); RED BLOOD CELL COUNT(AUTO) 3.51 MIL/uL (4.20-5.40); RED CELL DISTRIBUTION WIDTH 13.1 % (11.6-13.7); WHITE BLOOD COUNT (AUTO) 5.1 K/uL (4.8-10.8)
[2020-02-10 14:55] LABS: ALBUMIN 3.2 g/dL (3.4-5.0); ANION GAP 9.1 (8-16); ASPARTATE AMINOTRANSFERASE 19 U/L (15-37); CHLORIDE 108 mmol/L (98-107); CREATININE 0.8 mg/dL (0.6-1.3); GLUCOSE 75 mg/dL (74-106); POTASSIUM 4.1 mmol/L (3.5-5.1); SODIUM SERUM 143 mmol/L (136-145); TOTAL BILIRUBIN 0.4 mg/dL (0.0-1.0); UREA NITROGEN, BLOOD 9 mg/dL (7-18)
[2020-02-10 16:10] VITALS: BP 147/48
--- NOTE | 2020-02-10 16:11 | NUR ---
Patient discharged with v/s stable. Written and verbal after care instructions given and explained. Patient alert, oriented and verbalized understanding of instructions. Ambulatory with steady gait. All questions addressed prior to discharge. ID band removed. Patient advised to follow up with PMD. Rx of AUGMENTIN given. Patient educated on indication of medication including possible reaction and side effects. Opportunity to ask questions provided and answered.
== END 2020-02-10 16:11 | disposition home or self-care (01) ==
LOC: MED 12:12
DX: R42 Dizziness and giddiness (principal); E86.0 Dehydration; F41.9 Anxiety disorder, unspecified; K21.9 Gastro-esophageal reflux disease without esophagitis; Z79.899 Other long term (current) drug therapy
CPT/HCPCS: 36415; 70450; 80053; 85025; 96360; 99284; J7030

== ENCOUNTER 2020-02-16 10:28 | Emergency (ER) | payer OTHER, MEDICAID ==
[~2020-02-16] VITALS: Ht 167.6 cm; Wt 67.1 kg
[2020-02-16 10:31] VITALS: BP 153/98
--- NOTE | 2020-02-16 10:40 | NUR ---
PT AMBULATED TO ER BED 5
[2020-02-16] MEDS ORDERED: NACL 0.9% 1,000 ML IV ONE (10:56)
[2020-02-16] MEDS ORDERED: ONDANSETRON 4 MG/2 ML VIAL IVP ONE (11:00)
[2020-02-16] MEDS ORDERED: KETOROLAC 30 MG/ML VIAL IVP ONE (11:00)
--- NOTE | 2020-02-16 11:08 | NUR ---
Patient to xray via rney
--- NOTE | 2020-02-16 11:15 | NUR ---
Patient returned from xray
--- NOTE | 2020-02-16 11:23 | NUR ---
IV started #20g right AC , patient tolerated well. Blood drwan and sent to lab
[2020-02-16 11:48] LABS: BASOPHILS % (AUTO) 0.6 % (0.0-2.0); EOSINOPHILS # (AUTO) 0.1 K/uL (0-0.4); EOSINOPHILS % (AUTO) 2.2 % (0.0-4.0); HEMATOCRIT 36.3 % (36-48); LYMPHOCYTES # (AUTO) 1.8 K/uL (2.5-16.5); LYMPHOCYTES % (AUTO) 33.7 % (20.5-51.1); MEAN CORPUSCULAR HEMOGLOBIN 32 pg (27-31); MEAN CORPUSCULAR HGB CONC 33 g/dL (33-37); MEAN CORPUSCULAR VOLUME 96.9 fL (80-94); MONOCYTES # (AUTO) 0.5 K/uL (0.8-1.0); MONOCYTES % (AUTO) 9.3 % (1.7-9.3); NEUTROPHILS # (AUTO) 2.9 K/uL (1.8-7.7); NEUTROPHILS % (AUTO) 54.2 % (42.2-75.2); PLATELET COUNT (AUTO) 199 K/uL (140-450); RED BLOOD CELL COUNT(AUTO) 3.74 MIL/uL (4.20-5.40); RED CELL DISTRIBUTION WIDTH 13.1 % (11.6-13.7); WHITE BLOOD COUNT (AUTO) 5.3 K/uL (4.8-10.8)
[2020-02-16 12:06] LABS: ALBUMIN 3.5 g/dL (3.4-5.0); ANION GAP 9.2 (8-16); ASPARTATE AMINOTRANSFERASE 30 U/L (15-37); CARBON DIOXIDE 27.1 mmol/L (21-32); CHLORIDE 106 mmol/L (98-107); CREATININE 0.8 mg/dL (0.6-1.3); GLUCOSE 90 mg/dL (74-106); POTASSIUM 4.3 mmol/L (3.5-5.1); SODIUM SERUM 138 mmol/L (136-145); TOTAL BILIRUBIN 0.5 mg/dL (0.0-1.0); UREA NITROGEN, BLOOD 9 mg/dL (7-18)
[2020-02-16 12:51] VITALS: BP 153/98
--- NOTE | 2020-02-17 08:35 | NUR ---
CONFIRMED WITH RN -- NORMAL SALINE END TIME 1250 02/16/20
== END 2020-02-16 12:51 | disposition home or self-care (01) ==
LOC: MED 10:28
DX: R10.30 Lower abdominal pain, unspecified (principal); K21.9 Gastro-esophageal reflux disease without esophagitis; Z90.49 Acquired absence of other specified parts of digestive tract; Z79.899 Other long term (current) drug therapy
CPT/HCPCS: 36415; 74176; 80053; 81002; 85025; 96361; 96374; 96375; 99284; J1885; J2405; J7030

== ENCOUNTER 2020-03-05 09:14 | Emergency (ER) | payer OTHER, MEDICAID ==
[~2020-03-05] VITALS: Ht 170.2 cm; Wt 68.0 kg
[2020-03-05 09:19] VITALS: BP 128/74
--- NOTE | 2020-03-05 09:25 | NUR ---
PATIENT AMBULATED TO BED 12.
--- NOTE | 2020-03-05 09:30 | NUR ---
74 YEAR OLD FEMALE COMPLAINS OF CHRONIC ABDOMINAL PAIN X 8 MONTHS. PT STATES THAT HER PRIMARY CARE DOCTOR PROVIDED HER WITH MEDICATION BUT FEELS IT DOES NOT HELP WITH THE PAIN. PT STATES SHE IS HAVING ALOT OF ANXIETY. PT AOX4, BREATHING EVEN AND UNLABORED, SKIN WARM AND DRY. BED IN LOWEST POSITION, LOCKED, BED RAIL UPX1. PMH - appendectomy, Cholecystectomy ALLERGIES - NKA
--- NOTE | 2020-03-05 09:35 | NUR ---
Patient being evaluated by DR HENSLEY at bedside.
[2020-03-05] MEDS ORDERED: LORazepam 1 MG TAB PO ONE (09:40)
--- NOTE | 2020-03-05 09:46 | NUR ---
sophia callahan administered meds.
--- NOTE | 2020-03-05 10:30 | NUR ---
Patient discharged with v/s stable. Written and verbal after care instructions about dysuria, and anxiety given and explained. Patient alert, oriented and verbalized understanding of instructions. Ambulatory with steady gait. All questions addressed prior to discharge. ID band removed. Patient advised to follow up with PMD. Rx of pyridium, keflex, and ativan given. Patient educated on indication of medication including possible reaction and side effects. Opportunity to ask questions provided and answered.
[2020-03-05 10:34] VITALS: BP 128/74
[2020-03-05 11:10] LABS: BILIRUBIN,URINE NEGATIVE (NEGATIVE); BLOOD, URINE NEGATIVE (NEGATIVE); COLOR,URINE YELLOW (YELLOW); LEUKOCYTE ESTERASE ,URINE 2+ (NEGATIVE); NITRITE, URINE NEGATIVE (NEGATIVE); UGLUCOSE NEGATIVE (NEGATIVE)
[2020-03-05 11:22] LABS: APPEARANCE,URINE SLIGHTLY HAZY (CLEAR)
[2020-03-05 11:23] LABS: RBC,URINE 0-5 /HPF (0-5)
== END 2020-03-05 10:30 | disposition home or self-care (01) ==
LOC: MED 09:14
DX: N39.0 Urinary tract infection, site not specified (principal); F41.9 Anxiety disorder, unspecified; Z90.49 Acquired absence of other specified parts of digestive tract; Z79.899 Other long term (current) drug therapy
CPT/HCPCS: 81001; 81002; 87086; 99283

== ENCOUNTER 2020-03-24 13:01 | Emergency (ER) | payer OTHER, MEDICAID ==
[~2020-03-24] VITALS: Ht 170.2 cm; Wt 68.0 kg
[2020-03-24 13:16] VITALS: BP 112/68
--- NOTE | 2020-03-24 13:25 | NUR ---
VSS. HANDED ON URINE CUP. WAIT AT LOBBY.
[2020-03-24] MEDS ORDERED: SODIUM CHLORIDE FLUSH 10 ML SYR IVF STA (13:30)
[2020-03-24 13:56] LABS: BASOPHILS # (AUTO) 0.1 K/uL (0.00-0.22); BASOPHILS % (AUTO) 1.1 % (0.0-2.0); EOSINOPHILS # (AUTO) 0.1 K/uL (0-0.4); EOSINOPHILS % (AUTO) 1.3 % (0.0-4.0); HEMATOCRIT 37.8 % (36-48); HEMOGLOBIN 12.5 g/dL (12.0-16.0); LYMPHOCYTES # (AUTO) 2.2 K/uL (2.5-16.5); LYMPHOCYTES % (AUTO) 34.8 % (20.5-51.1); MEAN CORPUSCULAR HEMOGLOBIN 32 pg (27-31); MEAN CORPUSCULAR HGB CONC 33 g/dL (33-37); MEAN CORPUSCULAR VOLUME 95.2 fL (80-94); MONOCYTES # (AUTO) 0.6 K/uL (0.8-1.0); MONOCYTES % (AUTO) 9.1 % (1.7-9.3); NEUTROPHILS # (AUTO) 3.4 K/uL (1.8-7.7); NEUTROPHILS % (AUTO) 53.7 % (42.2-75.2); PLATELET COUNT (AUTO) 191 K/uL (140-450); RED BLOOD CELL COUNT(AUTO) 3.98 MIL/uL (4.20-5.40); RED CELL DISTRIBUTION WIDTH 13.4 % (11.6-13.7); WHITE BLOOD COUNT (AUTO) 6.3 K/uL (4.8-10.8)
[2020-03-24 14:05] LABS: APPEARANCE,URINE CLEAR (CLEAR); BILIRUBIN,URINE NEGATIVE (NEGATIVE); BLOOD, URINE NEGATIVE (NEGATIVE); COLOR,URINE YELLOW (YELLOW); LEUKOCYTE ESTERASE ,URINE 1+ (NEGATIVE); NITRITE, URINE NEGATIVE (NEGATIVE); UGLUCOSE NEGATIVE (NEGATIVE)
[2020-03-24 14:11] LABS: ALBUMIN 3.8 g/dL (3.4-5.0); ANION GAP 13.9 (8-16); ASPARTATE AMINOTRANSFERASE 43 U/L (15-37); CHLORIDE 103 mmol/L (98-107); CREATININE 0.8 mg/dL (0.6-1.3); GLUCOSE 96 mg/dL (74-106); POTASSIUM 3.9 mmol/L (3.5-5.1); SODIUM SERUM 140 mmol/L (136-145); TOTAL BILIRUBIN 0.5 mg/dL (0.0-1.0); UREA NITROGEN, BLOOD 10 mg/dL (7-18)
--- NOTE | 2020-03-24 14:34 | NUR ---
PT TAKEN TO BED 11.
--- NOTE | 2020-03-24 14:40 | NUR ---
C/O LOWER ABDOMINAL PAIN, NAUSEA X TODAY. LAST BM X TODAY. DENIES DYSURIA. MED HX: GERD, APPENDECTOMY, CHOLECYSTECTOMY
--- NOTE | 2020-03-24 14:44 | NUR ---
DR. GUAN IS EVALUATING PT AT BEDSIDE.
[2020-03-24] MEDS ORDERED: FAMOTIDINE 20 MG TAB PO ONE (14:50)
[2020-03-24] MEDS ORDERED: ACETAMINOPHEN EXTRA STRENGTH 500 MG TAB PO ONE (14:50)
[2020-03-24] MEDS ORDERED: ALUMINUM HYD/MAG/SIMETHICONE 30 ML UDC PO ONE (14:50)
[2020-03-24 15:06] LABS: RBC,URINE 0-5 /HPF (0-5); WBC,URINE 16-25 (MOD) /HPF (0-5)
[2020-03-24 15:22] VITALS: BP 108/65
--- NOTE | 2020-03-24 15:22 | NUR ---
Patient discharged with v/s stable. Written and verbal after care instructions given and explained. Patient alert, oriented and verbalized understanding of instructions. Ambulatory with steady gait. All questions addressed prior to discharge. ID band removed. Patient advised to follow up with PMD. Rx of Pepcid, Maalox, Tylenol and Macrobid given. Patient educated on indication of medication including possible reaction and side effects. Opportunity to ask questions provided and answered.
== END 2020-03-24 15:22 | disposition home or self-care (01) ==
LOC: MED 13:01
DX: N39.0 Urinary tract infection, site not specified (principal); Z79.899 Other long term (current) drug therapy
CPT/HCPCS: 36415; 80053; 81001; 83690; 85025; 87086; 99283; 99284

== ENCOUNTER 2020-04-02 11:01 | Emergency (ER) | payer OTHER, MEDICAID ==
[~2020-04-02] VITALS: Ht 170.2 cm; Wt 66.2 kg
[2020-04-02 11:26] VITALS: BP 119/70
[2020-04-02] MEDS ORDERED: KETOROLAC 60 MG/2 ML VIAL IM ONE (12:45)
[2020-04-02 13:32] VITALS: BP 119/70
== END 2020-04-02 13:32 | disposition home or self-care (01) ==
LOC: MED 11:01
DX: N39.0 Urinary tract infection, site not specified (principal); F41.9 Anxiety disorder, unspecified; R00.2 Palpitations; Z90.49 Acquired absence of other specified parts of digestive tract; Z98.890 Other specified postprocedural states; Z79.899 Other long term (current) drug therapy
CPT/HCPCS: 81002; 87086; 96372; 99283; J1885

== ENCOUNTER 2020-04-08 17:06 | Emergency (ER) | payer OTHER, MEDICAID ==
[~2020-04-08] VITALS: Ht 170.2 cm; Wt 63.5 kg
[2020-04-08 17:12] VITALS: BP 123/76
--- NOTE | 2020-04-08 17:18 | NUR ---
AMB TO BED 11
--- NOTE | 2020-04-08 17:23 | NUR ---
74 Y/O FEMALE PT REQUESTING FOR ATIVAN FOR ANXIETY. DENIES SUICIDAL/HOMOCIDAL IDEATION. HX- ANXIETY NKA
--- NOTE | 2020-04-08 17:45 | NUR ---
Dr. Hagen at pt bedside for evaluation.
[2020-04-08] MEDS ORDERED: LORazepam 1 MG TAB PO ONE (18:05)
--- NOTE | 2020-04-08 18:38 | NUR ---
Pt resting in bed, HOB elevated, visible rise and fall of chest. Will continue to monitor.
[2020-04-08 19:04] VITALS: BP 123/76
--- NOTE | 2020-04-08 19:05 | NUR ---
Patient discharged with v/s stable. Written and verbal after care instructions given and explained. Patient alert, oriented and verbalized understanding of instructions. Ambulatory with steady gait. All questions addressed prior to discharge. ID band removed. Patient advised to follow up with PMD. Rx of Cipro 500mg and Atarax 25mg given. Patient educated on indication of medication including possible reaction and side effects. Opportunity to ask questions provided and answered.
== END 2020-04-08 19:05 | disposition home or self-care (01) ==
LOC: MED 17:06
DX: F41.9 Anxiety disorder, unspecified (principal); N39.0 Urinary tract infection, site not specified; Z79.899 Other long term (current) drug therapy
CPT/HCPCS: 99283

== ENCOUNTER 2020-09-20 07:28 | Emergency (ER) | payer MEDICARE, MEDICAID ==
[~2020-09-20] VITALS: Ht 157.5 cm; Wt 70.8 kg
[2020-09-20 07:31] VITALS: BP 141/67
--- NOTE | 2020-09-20 07:35 | NUR ---
74 Y/O F BIB DAUGHTER FROM HOME, PT PRESENTS TO ED WITH R WRIST PAIN FROM MECHANICAL FALL LAST NIGHT. PT STATES SHE WAS TRYING TO CLIMB ON TOP OF BED AND FELL BACKWARDS. DENIES ANY HEAD INJURY. PT STATES PAIN DOES RADIATE UP EXTREMITIY, 10/10 PAIN, TOOK TYLENOL 3 TABS FOR PAIN (AROUND 0500 TODAY). VSS. PT ABLE TO AMBULATE, A&O X4. PMH: NONE MED: TYLENOL LAST DOSE 3 TABS @0500 NKA
--- NOTE | 2020-09-20 07:45 | NUR ---
XRAY AT BEDSIDE.
[2020-09-20] MEDS: IBUPROFEN 600 MG TAB PO SCH (07:59)
--- NOTE | 2020-09-20 08:14 | NUR ---
Dr. Bowen is evaluating the patient at bedside.
[2020-09-20] MEDS: LIDOCAINE MPF 1% 10 MG/ML VIAL INJ ONE (08:19)
--- NOTE | 2020-09-20 09:18 | NUR ---
XRAY AT BEDSIDE
--- NOTE | 2020-09-20 10:02 | NUR ---
PTS RIGHT ARM WAS PLACED IN A SUGAR TONG SPLINT. PTS RIGHT ARM WAS ALSO PLACED IN A SHOULDER IMOBOLIZER. [facility]
[2020-09-20 10:10] VITALS: BP 141/67
== END 2020-09-20 10:08 | disposition home or self-care (01) ==
LOC: MED 07:28
DX: S52.501A Unspecified fracture of the lower end of right radius, initial encounter for closed fracture (principal); S52.601A Unspecified fracture of lower end of right ulna, initial encounter for closed fracture; Z79.899 Other long term (current) drug therapy; Z90.49 Acquired absence of other specified parts of digestive tract; W06.XXXA Fall from bed, initial encounter; Y93.89 Activity, other specified; Y92.89 Other specified places as the place of occurrence of the external cause; Y99.8 Other external cause status
CPT/HCPCS: 25605; 73090; 73110; 73130; 99284; J2001

== ENCOUNTER 2020-10-20 12:13 | Emergency (ER) | payer MEDICARE, MEDICAID ==
[~2020-10-20] VITALS: Ht 170.2 cm; Wt 63.5 kg
[2020-10-20 12:19] VITALS: BP 123/53
--- NOTE | 2020-10-20 12:30 | NUR ---
75 Y/O FEMALE C/O 02/26 LOWER ABDOMINAL PAIN X TODAY. ABD SOFT, NON TENDER. ACTIVE BOWEL SOUNDS. LAST BM TODAY. DENIES ANY RECENT FEVER OR COUGH. RX: TYLENOL AND BENTYL WITH NO RELIEF MEDHX: ANXIETY NKA
--- NOTE | 2020-10-20 12:34 | NUR ---
PT UNABLE TO PROVIDE URINE AT THIS TIME. ERMD MADE AWARE. PER DR MICHELLE LEE TO GIVE WATER. WATER PROVIDED.
--- NOTE | 2020-10-20 12:51 | NUR ---
DR MARTINEZ AT BEDSIDE EXAMINING PATIENT
[2020-10-20] MEDS ORDERED: KETOROLAC 30 MG/ML VIAL IVP ONE (12:55)
--- NOTE | 2020-10-20 13:02 | NUR ---
PATIENT TAKEN TO CT VIA WHEELCHAIR
--- NOTE | 2020-10-20 13:51 | NUR ---
LAB AT BEDSIDE
[2020-10-20 14:06] LABS: BASOPHILS # (AUTO) 0.2 K/uL (0.00-0.22); BASOPHILS % (AUTO) 3.7 % (0.0-2.0); EOSINOPHILS # (AUTO) 0.2 K/uL (0-0.4); EOSINOPHILS % (AUTO) 4.1 % (0.0-4.0); HEMATOCRIT 33.4 % (36-48); HEMOGLOBIN 11.3 g/dL (12.0-16.0); LYMPHOCYTES # (AUTO) 1.1 K/uL (2.5-16.5); MEAN CORPUSCULAR HEMOGLOBIN 32 pg (27-31); MEAN CORPUSCULAR HGB CONC 34 g/dL (33-37); MEAN CORPUSCULAR VOLUME 95.2 fL (80-94); MONOCYTES # (AUTO) 0.5 K/uL (0.8-1.0); MONOCYTES % (AUTO) 10.3 % (1.7-9.3); NEUTROPHILS # (AUTO) 2.6 K/uL (1.8-7.7); NEUTROPHILS % (AUTO) 56.9 % (42.2-75.2); PLATELET COUNT (AUTO) 158 K/uL (140-450); RED BLOOD CELL COUNT(AUTO) 3.51 MIL/uL (4.20-5.40); RED CELL DISTRIBUTION WIDTH 13.8 % (11.6-13.7); WHITE BLOOD COUNT (AUTO) 4.6 K/uL (4.8-10.8)
--- NOTE | 2020-10-20 14:10 | NUR ---
PT AMBULATED TO RESTROOM, STEADY GAIT
[2020-10-20 14:13] LABS: ANION GAP 11.3 (8-16); CARBON DIOXIDE 27.9 mmol/L (21-32); CHLORIDE 106 mmol/L (98-107); CREATININE 0.7 mg/dL (0.6-1.3); GLUCOSE 88 mg/dL (74-106); POTASSIUM 4.2 mmol/L (3.5-5.1); SODIUM SERUM 141 mmol/L (136-145); UREA NITROGEN, BLOOD 13 mg/dL (7-18)
[2020-10-20 14:24] LABS: ALBUMIN 3.3 g/dL (3.4-5.0); ASPARTATE AMINOTRANSFERASE 25 U/L (15-37); LIPASE 56 U/L (73-393); TOTAL BILIRUBIN 0.4 mg/dL (0.0-1.0)
[2020-10-20] MEDS ORDERED: CIPR500T4 PO (14:43)
[2020-10-20] MEDS ORDERED: ACET-8386 PO (14:43)
[2020-10-20] MEDS ORDERED: MECL-303 PO (14:43)
[2020-10-20] MEDS ORDERED: TRAM50TA3 PO (14:51)
[2020-10-20 15:05] VITALS: BP 123/53
--- NOTE | 2020-10-20 15:05 | NUR ---
Patient discharged with v/s stable. Written and verbal after care instructions given and explained. Patient alert, oriented and verbalized understanding of instructions. Ambulatory with steady gait. All questions addressed prior to discharge. ID band removed. Patient advised to follow up with PMD. Rx of CIPROFLOXACIN, MECLIZINE, TRAMADOL given. Patient educated on indication of medication including possible reaction and side effects. Opportunity to ask questions provided and answered.
[2020-10-21] MEDS ORDERED: MECL-303 PO (11:43)
[2020-10-21] MEDS ORDERED: TRAM50TA3 PO (11:43)
[2020-10-21] MEDS ORDERED: CIPR500T4 PO (11:43)
== END 2020-10-20 15:05 | disposition home or self-care (01) ==
LOC: MED 12:13
DX: N39.0 Urinary tract infection, site not specified (principal); F41.9 Anxiety disorder, unspecified; Z90.49 Acquired absence of other specified parts of digestive tract; Z98.890 Other specified postprocedural states; Z79.899 Other long term (current) drug therapy
CPT/HCPCS: 36415; 74176; 80053; 81002; 83690; 85025; 96374; 99284; J1885

== ENCOUNTER 2020-10-23 11:16 | Emergency (ER) | payer MEDICARE, MEDICAID ==
[~2020-10-23] VITALS: Ht 170.2 cm; Wt 63.5 kg
[~2020-10-23 11:16] MED LIST changes: +CIPR500T4 PO; +MECL-303 PO; +TRAM50TA3 PO
[2020-10-23 11:27] VITALS: BP 131/68
[2020-10-23] MEDS ORDERED: MINERAL OIL 135 ML ENEM RC ONE (12:10)
[2020-10-23 13:59] VITALS: BP 131/68
== END 2020-10-23 13:59 | disposition home or self-care (01) ==
LOC: MED 11:16
DX: K59.00 Constipation, unspecified (principal); Z79.899 Other long term (current) drug therapy; Z98.890 Other specified postprocedural states
CPT/HCPCS: 99283; 99284

== ENCOUNTER 2020-10-28 12:12 | Emergency (ER) | payer MEDICARE, MEDICAID ==
[~2020-10-28] VITALS: Ht 170.2 cm; Wt 63.5 kg
[2020-10-28 12:26] VITALS: BP 124/64
--- NOTE | 2020-10-28 13:53 | NUR ---
JACQUE PATEL EVALUATING PT IN CHAIR C
[2020-10-28] MEDS ORDERED: KETOROLAC 30 MG/ML VIAL IM ONE (14:00)
[2020-10-28] MEDS ORDERED: ACET-8386 PO (15:03)
[2020-10-28] MEDS ORDERED: CEPH-588 PO (15:03)
--- NOTE | 2020-10-28 15:21 | NUR ---
Patient discharged with v/s stable. Written and verbal after care instructions given and explained. Patient alert, oriented and verbalized understanding of instructions. Ambulatory with steady gait. All questions addressed prior to discharge. ID band removed. Patient advised to follow up with PMD. Rx of NORCO, KEFLEX given. Patient educated on indication of medication including possible reaction and side effects. Opportunity to ask questions provided and answered.
[2020-10-28 15:22] VITALS: BP 124/64
== END 2020-10-28 15:21 | disposition home or self-care (01) ==
LOC: MED 12:12
DX: N39.0 Urinary tract infection, site not specified (principal); R42 Dizziness and giddiness; G47.00 Insomnia, unspecified; Z79.899 Other long term (current) drug therapy; Z90.49 Acquired absence of other specified parts of digestive tract
CPT/HCPCS: 81002; 96372; 99283; J1885

== ENCOUNTER 2020-10-31 12:20 | Emergency (ER) | payer MEDICARE, MEDICAID ==
[~2020-10-31] VITALS: Ht 170.2 cm; Wt 67.6 kg
[~2020-10-31 12:20] MED LIST changes: +ACET-8386 PO; +CEPH-588 PO
[2020-10-31 12:25] VITALS: BP 127/65
[2020-10-31 12:40] VITALS: BP 127/65
[2020-10-31] MEDS ORDERED: KETOROLAC 30 MG/ML VIAL IM ONE (12:40)
[2020-10-31] MEDS ORDERED: KETOROLAC 30 MG/ML VIAL ONE (12:41)
[2020-10-31] MEDS ORDERED: ACET-8386 PO (12:44)
== END 2020-10-31 12:50 | disposition home or self-care (01) ==
LOC: MED 12:20
DX: R10.9 Unspecified abdominal pain (principal); K59.00 Constipation, unspecified; R19.7 Diarrhea, unspecified; Z79.899 Other long term (current) drug therapy
CPT/HCPCS: 96372; 99283; J1885

== ENCOUNTER 2020-11-06 12:11 | Emergency (ER) | payer MEDICARE, MEDICAID ==
[~2020-11-06] VITALS: Ht 170.2 cm; Wt 67.6 kg
[2020-11-06 12:13] VITALS: BP_SYST 137; BP_SYST 142; BP_DIAS 44; BP_DIAS 74
[2020-11-06] MEDS ORDERED: NACL 0.9% 1,000 ML IV ONE (12:45)
[2020-11-06 13:10] LABS: BASOPHILS # (AUTO) 0.1 K/uL (0.00-0.22); EOSINOPHILS # (AUTO) 0.1 K/uL (0-0.4); EOSINOPHILS % (AUTO) 1.2 % (0.0-4.0); HEMATOCRIT 36.5 % (36-48); HEMOGLOBIN 12.1 g/dL (12.0-16.0); LYMPHOCYTES # (AUTO) 1.2 K/uL (2.5-16.5); LYMPHOCYTES % (AUTO) 19.9 % (20.5-51.1); MEAN CORPUSCULAR HEMOGLOBIN 32 pg (27-31); MEAN CORPUSCULAR HGB CONC 33 g/dL (33-37); MEAN CORPUSCULAR VOLUME 97.5 fL (80-94); MONOCYTES # (AUTO) 0.5 K/uL (0.8-1.0); MONOCYTES % (AUTO) 8.5 % (1.7-9.3); NEUTROPHILS # (AUTO) 4.1 K/uL (1.8-7.7); NEUTROPHILS % (AUTO) 68.4 % (42.2-75.2); PLATELET COUNT (AUTO) 196 K/uL (140-450); RED BLOOD CELL COUNT(AUTO) 3.74 MIL/uL (4.20-5.40); RED CELL DISTRIBUTION WIDTH 13.7 % (11.6-13.7)
[2020-11-06 13:23] LABS: ALBUMIN 3.6 g/dL (3.4-5.0); BILIRUBIN,DIRECT 0.1 mg/dL (0.0-0.3); MAGNESIUM 2.2 mg/dL (1.8-2.4); PHOSPHORUS 3.4 mg/dL (2.5-4.9); TOTAL BILIRUBIN 0.3 mg/dL (0.0-1.0)
[2020-11-06 13:26] LABS: ANION GAP 7.6 (8-16); CARBON DIOXIDE 29.4 mmol/L (21-32); CHLORIDE 105 mmol/L (98-107); CREATININE 0.7 mg/dL (0.6-1.3); GLUCOSE 102 mg/dL (74-106); SODIUM SERUM 138 mmol/L (136-145); UREA NITROGEN, BLOOD 10 mg/dL (7-18)
[2020-11-06] MEDS ORDERED: ACETAMINOPHEN 650 MG/20.3 ML UDC PO ONE (14:10)
[2020-11-06 14:45] VITALS: BP 142/64
== END 2020-11-06 13:45 | disposition home or self-care (01) ==
LOC: MED 12:11
DX: R19.7 Diarrhea, unspecified (principal); R10.84 Generalized abdominal pain; Z90.49 Acquired absence of other specified parts of digestive tract; Z98.890 Other specified postprocedural states; Z79.899 Other long term (current) drug therapy
CPT/HCPCS: 36415; 80048; 80076; 83690; 83735; 84100; 84484; 85025; 93005; 96360; 99284; J7030

== ENCOUNTER 2020-11-10 10:53 | Emergency (ER) | payer MEDICARE, MEDICAID ==
[~2020-11-10] VITALS: Ht 170.2 cm; Wt 67.6 kg
[2020-11-10 10:56] VITALS: BP 110/55
--- NOTE | 2020-11-10 11:07 | NUR ---
Patient ambulated to bed 7. RN evaluating the patient at bedside.
[2020-11-10] MEDS ORDERED: NACL 0.9% 1,000 ML IV ONE (11:10)
--- NOTE | 2020-11-10 11:10 | NUR ---
Patient is a 75 y/o female c/o chronic abdominal pain. Patient denies n/v/d. Patient states that she is taking Tramadol and it is not helping with the pain. PMH: anxiety RX: buspar, Tramadol NKA
--- NOTE | 2020-11-10 11:15 | NUR ---
Dr. Blair at the bedside evaluating patient.
[2020-11-10] MEDS ORDERED: FAMO-90 PO (11:22)
--- NOTE | 2020-11-10 11:25 | NUR ---
Patient ambulated to the restroom with a steady gait.
[2020-11-10 11:34] VITALS: BP 110/55
--- NOTE | 2020-11-10 11:34 | NUR ---
Patient discharged with v/s stable. Written and verbal after care instructions given and explained. Patient alert, oriented and verbalized understanding of instructions. Ambulatory with steady gait. All questions addressed prior to discharge. ID band removed. Patient advised to follow up with PMD. Rx of famotidine given. Patient educated on indication of medication including possible reaction and side effects. Opportunity to ask questions provided and answered.
== END 2020-11-10 11:34 | disposition home or self-care (01) ==
LOC: MED 10:53
DX: G89.29 Other chronic pain (principal); R10.30 Lower abdominal pain, unspecified; F41.9 Anxiety disorder, unspecified; Z79.899 Other long term (current) drug therapy
CPT/HCPCS: 99282; J7030

== ENCOUNTER 2020-11-11 16:32 | Emergency (ER) | payer MEDICARE, MEDICAID ==
[~2020-11-11] VITALS: Ht 162.6 cm; Wt 72.6 kg
[~2020-11-11 16:32] MED LIST changes: +FAMO-90 PO
[2020-11-11 16:51] VITALS: BP 138/77
== END 2020-11-11 17:25 | disposition left against medical advice (07) ==
LOC: MED 16:32
DX: R10.9 Unspecified abdominal pain (principal); Z53.21 Procedure and treatment not carried out due to patient leaving prior to being seen by health care provider

== ENCOUNTER 2020-11-16 18:15 | Emergency (ER) | payer MEDICARE, MEDICAID ==
[~2020-11-16] VITALS: Ht 165.1 cm; Wt 81.6 kg
[2020-11-16 18:18] VITALS: BP 152/78
--- NOTE | 2020-11-16 18:22 | NUR ---
PT AMBULATED WITH CANE TO BED 9
--- NOTE | 2020-11-16 18:25 | NUR ---
75 Y/O FEMALE C/O ABDOMINAL PAIN X1 YEAR. PT RATES PAIN 10/10 NONRADITAING. PT STATES SHE HAD DIARRHEA YESTERDAY BUT DENIES DIARRHEA TODAY. DENIES N/V. PT TOOK TRAMADOL AND TYLENOL TODAY WITHOUT RELIEF. PT HAS APPT TOMORROW WITH . BRY REQUESTING PAIN MEDS. PT A/O X4 WITH EVEN AND UNLABORED RESPIRATIONS. HX: ANXIETY, CHRONIC ABDOMINAL PAIN SX: APPENDECTOMY AND CHOLESYECTOMY.
--- NOTE | 2020-11-16 18:29 | NUR ---
DR HENSLEY AT BEDSIDE EVALUATING PT
[2020-11-16] MEDS ORDERED: KETOROLAC 15 MG/ML VIAL IM ONE (18:35)
[2020-11-16 19:06] VITALS: BP 152/78
--- NOTE | 2020-11-16 19:06 | NUR ---
Patient discharged with v/s stable. Written and verbal after care instructions given and explained. Patient verbalized understanding. Ambulatory with cane. All questions addressed prior to discharge. Advised to follow up with PMD.
== END 2020-11-16 19:06 | disposition home or self-care (01) ==
LOC: MED 18:15
DX: R10.33 Periumbilical pain (principal); G89.29 Other chronic pain; F41.9 Anxiety disorder, unspecified; Z90.49 Acquired absence of other specified parts of digestive tract; Z98.890 Other specified postprocedural states; Z79.899 Other long term (current) drug therapy; Z79.2 Long term (current) use of antibiotics; Z79.891 Long term (current) use of opiate analgesic
CPT/HCPCS: 96372; 99283; J1885

== ENCOUNTER 2020-11-20 11:49 | Emergency (ER) | payer MEDICARE, MEDICAID ==
[~2020-11-20] VITALS: Ht 170.2 cm; Wt 67.6 kg
[2020-11-20 11:52] VITALS: BP 129/50
--- NOTE | 2020-11-20 12:15 | NUR ---
PT SEEN AND ASSESSED BY KANWAL SORIA. PENDING DISCHARGE.
[2020-11-20] MEDS ORDERED: KETOROLAC 30 MG/ML VIAL IM ONE (12:20)
[2020-11-20] MEDS ORDERED: ATA25 PO (12:29)
[2020-11-20 12:34] VITALS: BP 129/50
[2020-11-21] MEDS ORDERED: MAG-27 PO (13:29)
[2020-11-21] MEDS ORDERED: DOCU-299 PO (13:29)
== END 2020-11-20 12:34 | disposition home or self-care (01) ==
LOC: MED 11:49
DX: R10.9 Unspecified abdominal pain (principal); H53.8 Other visual disturbances; Z90.49 Acquired absence of other specified parts of digestive tract; Z79.899 Other long term (current) drug therapy
CPT/HCPCS: 96372; 99283; J1885

== ENCOUNTER 2020-11-21 11:27 | Emergency (ER) | payer MEDICARE, MEDICAID ==
[~2020-11-21] VITALS: Ht 170.2 cm; Wt 68.0 kg
[~2020-11-21 11:27] MED LIST changes: +ATA25 PO
[2020-11-21 11:35] VITALS: BP 126/60
[2020-11-21] MEDS ORDERED: MAGNESIUM CITRATE 300 ML BTL PO ONE (11:45)
[2020-11-21] MEDS ORDERED: ALUMINUM HYD/MAG/SIMETHICONE 30 ML UDC PO ONE (11:45)
[2020-11-21] MEDS ORDERED: KETOROLAC 15 MG/ML VIAL IM ONE (11:50)
[2020-11-21 12:38] LABS: BASOPHILS % (AUTO) 0.4 % (0.0-2.0); EOSINOPHILS % (AUTO) 0.5 % (0.0-4.0); HEMATOCRIT 36.5 % (36-48); HEMOGLOBIN 12.2 g/dL (12.0-16.0); LYMPHOCYTES # (AUTO) 1.3 K/uL (2.5-16.5); LYMPHOCYTES % (AUTO) 23.5 % (20.5-51.1); MEAN CORPUSCULAR HEMOGLOBIN 33 pg (27-31); MEAN CORPUSCULAR HGB CONC 34 g/dL (33-37); MEAN CORPUSCULAR VOLUME 97.5 fL (80-94); MONOCYTES # (AUTO) 0.4 K/uL (0.8-1.0); MONOCYTES % (AUTO) 8.1 % (1.7-9.3); NEUTROPHILS # (AUTO) 3.6 K/uL (1.8-7.7); NEUTROPHILS % (AUTO) 67.5 % (42.2-75.2); PLATELET COUNT (AUTO) 180 K/uL (140-450); RED BLOOD CELL COUNT(AUTO) 3.74 MIL/uL (4.20-5.40); RED CELL DISTRIBUTION WIDTH 13.5 % (11.6-13.7); WHITE BLOOD COUNT (AUTO) 5.4 K/uL (4.8-10.8)
[2020-11-21 12:50] LABS: ANION GAP 12.9 (8-16); CARBON DIOXIDE 25.9 mmol/L (21-32); CHLORIDE 106 mmol/L (98-107); CREATININE 0.8 mg/dL (0.6-1.3); GLUCOSE 100 mg/dL (74-106); POTASSIUM 3.8 mmol/L (3.5-5.1); SODIUM SERUM 141 mmol/L (136-145); UREA NITROGEN, BLOOD 8 mg/dL (7-18)
[2020-11-21] MEDS ORDERED: DOCU-299 PO (13:29)
[2020-11-21] MEDS ORDERED: MAG-27 PO (13:29)
[2020-11-21 13:50] VITALS: BP 124/61
== END 2020-11-21 13:37 | disposition home or self-care (01) ==
LOC: MED 11:27
DX: G89.29 Other chronic pain (principal); R10.9 Unspecified abdominal pain; K59.00 Constipation, unspecified
CPT/HCPCS: 36415; 74018; 80048; 85025; 96372; 99284; J1885; 81002